=== PATIENT | male | born 1935 ===

== ENCOUNTER 2020-08-12 00:29 | Inpatient (IN) | payer MEDICARE ==
[~2020-08-12] VITALS: Ht 167.6 cm; Wt 92.5 kg
[2020-08-12] MEDS ORDERED: MORPHINE 4 MG/ML 1ML VIAL/SYRINGE (J2270) IV ONE (00:45)
[2020-08-12] MEDS ORDERED: NS 1,000 ML IV SCH (00:46)
--- NOTE | 2020-08-12 00:49 | HPEPDOC ---
[facility] Medical History & Physical Date of Admission Aug 12, 2020 Date of Service: Aug 12, 2020 Primary Care Physician: Colten Trammell Attending Physician: ALBIN LEI MD History and Physical TIME OF SERVICE: 105am CHIEF COMPLAINT: fall HISTORY OF PRESENT ILLNESS: This 85 yr old M was sent from [facility] for Orthopedic evaluation. He presented there after having a fall backwards while getting up to use the bathroom resulting in him hitting the back of his head. Thereafter he developed right leg and knee pain. He denied feeling dizzy, feeling short of breath, having chest pain, having palpitations or feeling like the ground was moving beneath him prior to the fall. He feels like his legs gave out and is unsure if he lost consciousness. 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 HOME MEDICATIONS: Please see below. PHYSICAL EXAMINATION: Vital Signs Date Time Temp Pulse Resp B/P (MAP) Pulse Ox O2 Delivery O2 Flow Rate FiO2 08/12/20 00:45 114 18 98 Nasal Cannula 2.0 08/12/20 00:46 126/74 (91) 08/12/20 00:49 99.1 GENERAL APPEARANCE: well nourished/ well developed/ NAD HEENT: EOMI/ hearing aide in left ear CARDIOVASCULAR: HR irregularly irregular /NMRG LUNGS: CTAB on the left, breath sounds diminished on the right ABDOMEN: obese/distended/soft & NT on palpation NEUROLOGICAL:CN 2-12 except for hearing grossly intact/ speech not dysarthric PSYCHIATRIC: A&O LABORATORY DATA: see HPI IMAGING: see HPI MICROBIOLOGY: COVID ASSESSMENT: is an 85 yr old w a hx of Afib CAD NIDDM IRENE CKD 4 HTN / HFpEF Gout Pleural effusion Obesity & Unsteady gait who had a fall resulting in a right proximal femur fx & was transferred to [facility] for Orthopedic evaluation. PLAN: 1. Fall resulting in a Proximal Right Femur Fx / Osteoporosis Prior to completing perioperative clearance for surgery this patient should receive a thoracentesis +/- an Echo to r/o pulm HTN Plan: admit to [facility] / Ortho consult / dilaudid for pain / pending BNP the day time team may consider ordering an Echo or contacting the PCP to obtain records / f/u trop, serum Ca, Vitamin D, phosphorus, magnesium, TSH / c/w PO Tums and Vitamin D / the pt can f/u with their PCP for DEXA Scan and risk stratification with the use of FRAX or other risk stratification score prior to selecting his medications for Osteoporosis 2. Normocytic Anemia Plan: type and screen/ f/u Iron studies / hold oral iron pending stool occult results 3. Pleural Effusion Based on the transfer records he has an effusion but there was no information on the etiology Plan: pending chest xray to determine the size of the effusion the day time team may consult IR or Dr. Hollins for diagnostic thoracentesis & consider contacting (PCP) to obtain records 4. Longstanding persistent A fib CHADSVASc is 6 but for unclear reasons he is not on AC Plan: metoprolol / low dose Lovenox / will ask the day time team to more info from his PCP 5. NIDDM Plan: diabetic diet / f/u accuchecks & A1C (target A1C is about 8.5% bc he is frail, elderly& lives in a NH) / hypoglycemia protocol / sliding scale insulin / hold Tradjenta 6. IRENE /Obesity Plan: nocturnal O2 7. CKD 4 Plan: f/u BMP 8. HTN / HFpEF Plan: Lasix, metoprolol 9. Chronic CAD/hx of IN Plan: ASA 10. Anxiety/Depression Plan: Escitalopram, trazodone 12. Gout Plan: allopurinol 13.GERD Plan: PPI 14. BPH Plan: tamsulosin DVT Px w Lovenox Dispo: back to [place] after more than 2 midnights stay / PFS consult has been placed Home Medications Scheduled Allopurinol (Allopurinol) 100 Mg Tablet, 100 MG PO DAILY Aspirin (Aspirin) 81 Mg Tab.chew, 81 MG PO DAILY Cholecalciferol (Vitamin D3) (Vitamin D3) 25 Mcg Capsule, 25 MCG PO DAILY Escitalopram Oxalate (Escitalopram Oxalate) 20 Mg Tablet, 20 MG PO DAILY Ferrous Sulfate (Ferrous Sulfate) 325 Mg Tablet, 325 MG PO DAILY Furosemide (Furosemide) 40 Mg Tablet, 40 MG PO BID L.acidoph/L.bulg/B.bif/S.therm (Bacid Caplet) 1 Each Tablet, 1 TAB PO TID Lansoprazole (Lansoprazole) 30 Mg Capsule.dr, 30 MG PO DAILY Linagliptin (Tradjenta) 5 Mg Tablet, 5 MG PO DAILY Metoprolol Succinate (Metoprolol Succinate) 25 Mg Tab.er.24h, 25 MG PO DAILY Tamsulosin HCl (Flomax) 0.4 Mg Capsule, 1 CAP PO QHS once daily 1/2 hour following the same meal each day Trazodone HCl (Trazodone HCl) 50 Mg Tablet, 50 MG PO QHS Scheduled PRN Acetaminophen (Acetaminophen) 500 Mg Tablet, 1,000 MG PO TID PRN for PAIN Bisacodyl (Bisacodyl) 10 Mg Supp.rect, 10 MG NM DAILY PRN for CONSTIPATION GIVE ON DAY 3 OF NO BM IF NO RELIEF FROM MOM Calcium Carbonate (Tums) 200 Mg Tab.chew, 500 MG PO TID PRN for HEART BURN Magnesium Hydroxide (Milk of Magnesia) 400 Mg/5 Ml Oral.susp, 30 ML PO ONCE PRN for CONSTIPATION GIVE ON DAY 3 IN AM IF NO BM Sodium Phosphate,[place]-Dibasic (Fleet Enema) 133 Ml Enema, 1 LEONIE NM ONCE PRN for CONSTIPATION GIVE ON DAY 4 OF NO BM IF NO RELIEF FROM SUPPOSITORY Allergies Coded Allergies: No Known Allergies (Unverified , 08/12/20) A-FIB/CHADSVASC A-FIB History Current/History of A-Fib/PAF?: Yes Current PO Anticoag Therapy: No Treatment Reason Anticoagulant not given: Recent/upcomin procedure ALBIN LEI MD Aug 12, 2020 00:49
[2020-08-12] MEDS ORDERED: HYDROMORPHONE HCL 0.5 MG/ 0.5 ML SYRINGE (J1170 PER 1) IV PRN ×2 (01:00)
[2020-08-12] MEDS ORDERED: ALLO100T PO (01:44)
[2020-08-12] MEDS ORDERED: LANS30CA PO (01:44)
[2020-08-12] MEDS ORDERED: ASPI1CHW3 PO (01:44)
[2020-08-12] MEDS ORDERED: ESCI20TA16 PO (01:44)
[2020-08-12] MEDS ORDERED: BACITAB PO (01:44)
[2020-08-12] MEDS ORDERED: FERR1TAB8 PO (01:44)
[2020-08-12] MEDS ORDERED: FLEEENE12 PR (01:44)
[2020-08-12] MEDS ORDERED: TRAD5TAB PO (01:44)
[2020-08-12] MEDS ORDERED: TRAZ-186 PO (01:44)
[2020-08-12] MEDS ORDERED: METO1TAB32 PO (01:44)
[2020-08-12] MEDS ORDERED: D 1010002 PO (01:44)
[2020-08-12] MEDS ORDERED: ACET-683 PO (01:44)
[2020-08-12] MEDS ORDERED: BISA10SU4 PR (01:44)
[2020-08-12] MEDS ORDERED: FLOM0.4C39 PO (01:44)
[2020-08-12] MEDS ORDERED: MILKSUS7 PO (01:44)
[2020-08-12] MEDS ORDERED: ONDANSETRON 4MG/2ML VIAL IV ONE (01:45)
[2020-08-12] MEDS ORDERED: TUMS500C PO (01:52)
[2020-08-12] MEDS ORDERED: FURO40TA2 PO (01:53)
[2020-08-12 03:45] VITALS: BP 154/91
[2020-08-12] MEDS ORDERED: DEXTROSE 50% 50 ML SYRINGE IV PRN (05:15)
[2020-08-12] MEDS ORDERED: GLUCAGON INJ 1MG VIAL SC PRN (05:15)
[2020-08-12] MEDS ORDERED: GLUCOSE 4GM CHEW TABLET PO PRN (05:15)
[2020-08-12 05:21] LABS: BASO % 0.2 % (0.0-1.0); EOS # 0.1 10^3/uL (0.0-0.5); EOS % 0.8 % (0.0-3.0); HEMATOCRIT 27.3 % (42.0-52.0); HEMOGLOBIN 7.9 g/dl (13.5-17.5); LYMPH # 1.3 10^3/uL (1.5-5.0); LYMPH % 11.9 % (24.0-44.0); MEAN CORPUSCULAR HEMOGLOBIN 25.4 pg (27.0-33.0); MEAN CORPUSCULAR HGB CONC 28.9 g/dl (32.0-36.5); MEAN CORPUSCULAR VOLUME 87.8 fl (80.0-96.0); MONO # 0.5 10^3/uL (0.0-0.8); MONO % 4.9 % (0.0-5.0); NEUTROPHILS % 81.5 % (36.0-66.0); PLATELET COUNT, AUTOMATED 172 10^3/uL (150-450); RED BLOOD COUNT 3.11 10^6/uL (4.30-6.10); WHITE BLOOD COUNT 11.1 10^3/uL (4.0-10.0)
[2020-08-12 05:32] LABS: INR 1.22; PROTHROMBIN TIME 15.7 SECONDS (12.5-14.3)
[2020-08-12 05:33] LABS: PARTIAL THROMBOPLASTIN TIME 31.7 SECONDS (24.2-38.5)
[2020-08-12 05:40] LABS: CALCIUM LEVEL 8.2 MG/DL (8.8-10.2); CREATININE FOR GFR 1.73 MG/DL (0.70-1.30); GLOMERULAR FILTRATION RATE 40.1 (>35); POTASSIUM SERUM 4.3 MEQ/L (3.5-5.1); TROPONIN I 0.02 NG/ML (< 0.10)
[2020-08-12] MEDS ORDERED: CALCIUM CARBONATE 500 MG CHEW U/D PO PRN (06:00)
--- NOTE | 2020-08-12 06:14 | REPVR ---
PROCEDURE INFORMATION: Exam: XR Chest, 1 View Exam date and time: 08/12/2020 6:06 AM Age: 85 years old Clinical indication: Other: Effusion; Additional info: F/u on effusion TECHNIQUE: Imaging protocol: XR of the chest Views: 1 view. COMPARISON: No relevant prior studies available. FINDINGS: Lungs: Unremarkable. No consolidation. Pleural space: There is a large right-sided pleural effusion with overlying atelectasis and or infiltrates. Heart/Mediastinum: Unremarkable. No cardiomegaly. Bones/joints: Unremarkable. IMPRESSION: Large right-sided pleural effusion with overlying atelectasis versus infiltrates. Minimal residual aerated lung field is noted. Other underlying etiologies cannot be excluded. Electronically signed by: Emerson Tapia On 08/12/2020 06:14:27 AM
--- NOTE | 2020-08-12 06:17 | REPVR ---
PROCEDURE INFORMATION: Exam: XR Abdomen, 1 View Exam date and time: 08/12/2020 6:06 AM Age: 85 years old Clinical indication: Bloating; Additional info: Distension TECHNIQUE: Imaging protocol: XR of the abdomen. Views: Frontal supine view of the abdomen. 1 View. COMPARISON: No relevant prior studies available. FINDINGS: Gastrointestinal tract: The stomach is significantly distended with gas. There is distention of the colon as well as multiple bowel loops with gas. Bones/joints: Unremarkable. IMPRESSION: Diffuse gaseous distention of the small and large bowel loops possibly due to ileus however distal large bowel obstruction cannot be excluded. If clinically indicated Correlation with CT of the abdomen and pelvis may be considered. Electronically signed by: Emerson Tapia On 08/12/2020 06:16:57 AM
[2020-08-12 06:18] LABS: D-DIMER QUANT > 4000 ng/ml (<500)
[2020-08-12 07:21] LABS: PERCENT SATURATION 9.1 % (19.7-50.0); THYROID STIMULATING HORMONE 0.391 uIU/ML (0.358-3.740)
[2020-08-12] MEDS: HumaLOG INSULIN (NovoLOG) PER UNIT SC SCH ×3 (07:30→18:00)
[2020-08-12] MEDS ORDERED: OMEPRAZOLE 20 MG CAP PO SCH (09:00)
[2020-08-12] MEDS ORDERED: METOPROLOL SUCC *XL* 25MG TAB (TopROL *XL*) PO SCH (09:00)
[2020-08-12] MEDS ORDERED: FUROSEMIDE 40 MG TAB PO SCH (09:00)
--- NOTE | 2020-08-12 09:26 | ECGEPIP ---
[facility] Test Date: 2020-08-12 Pat Name: ZAINA CHAND Department: Room: [place] [address] Gender: Male Blood Coordinator: JEAN-PIERRE : 1935 Requested By: ALBIN LEI Order Number: [id number] Reading MD: Ant Gonzalez Measurements Intervals [place]o Rate: 108 P: MO: 0 QRS: -15 QRSD: 90 T: 8 QT: 359 QTc: 481 Interpretive Statements Somatic artifact Suspected multifocal atrial tachycardia (visible P waves prior to each QRS complex V2 and V3) Poor precordial R wave progression with persistent S waves V5 and V6; body habitus versus pulmonary disease. Subtle nonspecific ST/T wave abnormalities No prior tracing for comparison. Clincal correlation advised Electronically Signed on 08-12-2020 9:26:24 EST by Ant Gonzalez
[2020-08-12 09:56] LABS: HEMOGLOBIN A1c 6.6 %
[2020-08-12 10:55] LABS: FOLATE 11.3 NG/ML (>5.4); TOTAL 25(OH) VITAMIN D 41.1 NG/ML (30.0-100.0)
[2020-08-12] MEDS: FUROSEMIDE 40MG/4ML VIAL (J1940) IV SCH ×2 (10:57→16:15)
[2020-08-12] MEDS: ENOXAPARIN 40MG/0.4ML SYRINGE (J1650 PER 10MG) SC SCH (10:57)
[2020-08-12 12:31] VITALS: BP 136/94
[2020-08-12] MEDS: allopurinoL 100 MG TAB PO SCH (12:47)
[2020-08-12] MEDS: VITAMIN D 1,000 INTERNATIONAL UNITS TABLET PO SCH (12:47)
[2020-08-12] MEDS: ESCITALOPRAM OXALATE 10 MG TAB (LEXAPRO) PO SCH (12:47)
[2020-08-12] MEDS: ASPIRIN 81 MG CHEW TABLET PO SCH (12:47)
--- NOTE | 2020-08-12 12:54 | REP ---
INDICATION: elevated ddimer, CKD r/o DVT. COMPARISON: None. TECHNIQUE: Multiple ultrasonographic images of the deep venous structures of the bilateral thigh were obtained from the common femoral vein to the popliteal vein along with Doppler interrogation and color flow Doppler images. FINDINGS: There is no abnormal echogenic material seen within any of the visualized deep venous structures that would suggest acute thrombosis. Coaptation is unremarkable throughout. Doppler interrogation shows an expected response to respiratory variability and augmentation. The color flow images show what appears to be a normal vascular pattern throughout. IMPRESSION: There is no ultrasonographic evidence of deep venous thrombosis involving any of the visualized deep venous structures of the bilateral thigh, as described above. The technologist has indicated in the worksheet that the examination is limited due to the condition of the patient. <Electronically signed by Edis De Oliveira > 08/12/20 0848
[2020-08-12] MEDS: PANTOPRAZOLE 40MG VIAL (C9113 PER 1) IV SCH (13:00)
--- NOTE | 2020-08-12 14:07 | REP ---
INDICATION: abd pain with distention COMPARISON: Portable view of the abdomen 12 August 2020.. TECHNIQUE: Helical scanning is acquired in 4 mm axial images were reformatted. Coronal and sagittal MPR images were generated and reviewed. FINDINGS: Preliminary tower director view of the abdomen demonstrates gaseous distention moderate in degree involving the stomach and the colon consistent with ileus. There is an impacted deformity in the right proximal femur on the tower director view. On axial CT images there is evidence of at least moderate right pleural effusion as the pleural space visualized at the right lung base is completely occupied by fluid and atelectasis. There is a very small sliver of fluid in the left pleural space. There are granulomatous calcifications scattered throughout the spleen which is not enlarged. There are 1 or 2 granulomatous calcifications in the liver. No focal liver lesion is seen. The lumen of the gallbladder is opaque consistent with mineralized content such is in sludge or vicarious excretion of contrast. Normal adrenal glands are seen. There is diffuse atrophy of the kidneys without hydronephrosis. A small cyst is seen in the cortex of the lower pole and there are scattered tiny calcifications suspected in the left kidney. No hydronephrosis is seen. No retroperitoneal mass or adenopathy is observed. A Bradley catheter is seen in the otherwise empty urinary bladder. Seminal vesicles are prostate are unremarkable. There is mild left colonic diverticulosis. Axial CT images confirm the presence of moderate gaseous distention of throughout the stomach and the entire colon extending to the rectosigmoid segment consistent with ileus. The small bowel is normal in caliber. No abdominal wall defect is seen. No free air or abnormal abdominal fluid collection is seen. There is a somewhat comminuted impacted inter trochanteric fracture of the right proximal femur in Veress. No pelvic fracture is appreciated. Vertebral body heights are preserved. There are degenerative spondylosis changes. No other fracture is appreciated. IMPRESSION: 1. Moderate to large right pleural effusion with atelectasis right lung. 2. Renal cortical atrophy. 3. Moderate diffuse ileus pattern in the bowel gas with moderate gaseous distention involving the stomach and almost all of the colon. 4. Comminuted and impacted inter trochanteric fracture right hip in varus. This appears to be acute. 5. Bradley catheter in place. <Electronically signed by Dakota Bradley > 08/12/20 [id number]
--- NOTE | 2020-08-12 14:19 | CR ---
CONSULTATION DATE: 08/12/2020 CHIEF COMPLAINT: Right hip pain and right knee pain. HISTORY OF PRESENT ILLNESS: This is an 85-year-old male patient sent on transfer from [facility] for evaluation of his right hip fracture. By report only, he was noted to have an intertrochanteric fracture of the right femur. Unfortunately there are no images to review today, is still pending updated x-rays of his knee and hip on the right side. He is currently in the process of workup for pleural effusion and also question of possibly small bowel obstruction so he is in workup currently for that. He is very confused today. He is in the PCU stretcher today, sitting up. When I asked him other than his name and date of those are the only questions he can answer. After that he tells me he cannot hear me and wants to know where his socks are. Other than that he is very confused. He denies currently any leg pain on the right side. Denies any calf pain on either side and tells me that he did not fall and he did not injure anything but by report obviously this is contrary of what was given by history so most of his history is obtained from the medical record. He does not remember if he lost consciousness or not. He has history of bilateral knee replacements done as well. MEDICAL HISTORY: Includes oxygen-dependent respiratory failure, coronary artery disease, status post IN, diabetes, sleep apnea, chronic kidney disease stage 4, hypertension, Afib, elevated lipids, anxiety, gout, erectile dysfunction, gastric reflux disease, obesity, hearing loss, benign prostatic hypertrophy, history of AAA. SURGICAL HISTORY: As discussed before, bilateral knee replacements, other than that not able to get further surgical history from the patient. REVIEW OF SYSTEMS: Per HPI. Again very difficult to complete a review of systems as he is very confused today. FAMILY HISTORY: Noncontributory. SOCIAL HISTORY: Apparently resides at the [facility]. ALLERGIES: NO KNOWN DRUG ALLERGIES. CURRENT MEDICATIONS: 1. Allopurinol 100 mg one tablet once per day. 2. Aspirin 81 mg one tablet once per day. 3. Vitamin D3 25 mcg one tablet once per day. 4. Escitalopram 20 mg one tablet once per day. 5. Iron Sulfate 25 mg one tablet once per day. 6. Lasix 40 mg one tablet twice daily. 7. Lansoprazole 30 mg one tablet once per day. 8. Linagliptin 5 mg one tablet once per day. 9. Metoprolol 25 mg one tablet once per day. 10. Flomax 0.5 mg one tablet at bedtime. 11. Trazodone 50 mg at bedtime. PHYSICAL EXAMINATION: GENERAL: Very confused male patient who appears to be older than his stated age, sitting up in the hospital bed at approximately 40 degrees of elevation of the back of the hospital bed. EXTREMITIES: His right leg is externally rotated and shortened. There is a large area of ecchymosis around the right knee. There is no effusion on exam today, no increased warmth around the hip or the knee. There is obvious deformity of the right hip. Otherwise, the skin is intact around the right hip. There is 2+ pitting edema in the right leg. Clonus negative. No pain with passive range of motion of the ankle or the great toe. Dorsalis pedis and posterior tibial pulses are palpable, equal and symmetrical on exam today. On the left lower extremity there is 1+ pitting edema, no clonus on exam on the left side. No pain with passive range of motion of the ankle or great toe on the left side. On the right side at the knee he lacks about 5 degrees of complete extension and can only flex him to about 60 degrees secondary to his pain in his hip. There is a well healed surgical scar consistent with his history of total knee arthroplasty on the right side. Examination of the left knee also reveals well healed surgical scar, range of motion is 0 to 80 degrees without irritability. There is no irritability with hip range of motion on the left side. Good range of motion of the shoulders, elbows and upper extremities without notable grimace on exam today. IMPRESSION: By report only is intertrochanteric fracture of the right femur as well as contusion to his right leg, contusion to his right knee status post total knee arthroplasty on right side. PLAN: He needs x-rays of his right hip and right knee, complete series of each. He will also need to complete his medical optimization for his other ongoing conditions. At some point he is going to be a candidate for open reduction and internal fixation of his right hip if he continues to improve with his medical optimization. He will currently be nonweightbearing on the right lower extremity. DVT prophylaxis and pain medications per the primary team. For now he essentially will be bed bound and nonweightbearing on the right lower extremity until we can make progress with his open reduction and internal fixation of his right hip fracture. Obviously this is complicated by his underlying medical conditions as well. Feel free to contact orthopedics if further conditions arise. We will continue to follow with him pending his medical optimization and also pending his updated x-rays of his knee and hip. Thank you for this pleasant consult. cc: SINTIA CARROLL MD
--- NOTE | 2020-08-12 15:56 | IPNPDOC ---
Text Note Date of Service The patient was seen on 08/12/20. NOTE Subjective: -Complaining of abdominal pain -Belching with N/V, refused NGT for ileus -surgery consulted, will monitor -Seen by ortho, ordered imaging -transferred to PCU Objective: GENERAL APPEARANCE: Obese, pleasantly NAD HEENT: EOMI/ hearing aide in left ear CARDIOVASCULAR: HR irregularly irregular /NMRG LUNGS: CTAB on the left, breath sounds diminished on the right ABDOMEN: obese/distended/soft/hypoactive, LLQ very tender NEUROLOGICAL:CN 2-12 except for hearing grossly intact/ speech not dysarthric PSYCHIATRIC: A&O LABORATORY DATA: reviewed IMAGING: CT A/P: Preliminary card services specialist view of the abdomen demonstrates gaseous distention moderate in degree involving the stomach and the colon consistent with ileus. There is an impacted deformity in the right proximal femur on the card services specialist view. On axial CT images there is evidence of at least moderate right pleural effusion as the pleural space visualized at the right lung base is completely occupied by fluid and atelectasis. There is a very small sliver of fluid in the left pleural space. There are granulomatous calcifications scattered throughout the spleen which is not enlarged. There are 1 or 2 granulomatous calcifications in the liver. No focal liver lesion is seen. The lumen of the gallbladder is opaque consistent with mineralized content such is in sludge or vicarious excretion of contrast. Normal adrenal glands are seen. There is diffuse atrophy of the kidneys without hydronephrosis. A small cyst is seen in the cortex of the lower pole and there are scattered tiny calcifications suspected in the left kidney. No hydronephrosis is seen. No retroperitoneal mass or adenopathy is observed. A Chen catheter is seen in the otherwise empty urinary bladder. Seminal vesicles are prostate are un remarkable. There is mild left colonic diverticulosis. Axial CT images confirm the presence of moderate gaseous distention of throughout the stomach and the entire colon extending to the rectosigmoid segment consistent with ileus. The small bowel is normal in caliber. No abdominal wall defect is seen. No free air or abnormal abdominal fluid collection is seen. There is a somewhat comminuted impacted inter trochanteric fracture of the right proximal femur in Veress. No pelvic fracture is appreciated. Vertebral body heights are preserved. There are degenerative spondylosis changes. No other fracture is appreciated. IMPRESSION: 1. Moderate to large right pleural effusion with atelectasis right lung. 2. Renal cortical atrophy. 3. Moderate diffuse ileus pattern in the bowel gas with moderate gaseous distention involving the stomach and almost all of the colon. 4. Comminuted and impacted inter trochanteric fracture right hip in varus. This appears to be acute. 5. Chen catheter in place. MICROBIOLOGY: COVID negative ASSESSMENT: is an 85 yr old w a hx of Afib CAD NIDDM IRENE CKD 4 HTN / HFpEF Gout Pleural effusion Obesity & Unsteady gait who had a fall resulting in a right proximal femur fx & was transferred to [facility] for Orthopedic evaluation. PLAN: Proximal Right Femur 2/2 mechanical fall -consulted ortho --> getting imaging -scheduled tylenol and PRN morphine for pain management -bed rest -needs medical optimization pre-surgical intervention with ongoing CHF, large pleural effusion, ileus and SHAJI CHF with shraddha volume overload and large R pleural effusion -elevated proBNP -EKG was non-ischemic and troponin negative -telemery -IV lasix 40 IV BID -strict I/Os -daily weights -chen for strict I/Os in bedbound patient with acute hip fracture -TTE Large R pleural effusion -Chronic in nature but likely worsened i/s/o CHF exacerbation -IR for thoracentesis with studies -supplemental oxygen for mild hypoxemia CKD4: I suspect he might have some congestive nephropathy given the shraddha volume overload -diuretics as above -no hydronephrosis on imaging -daily BMP Normocytic Anemia -Has active type and screen -f/u Iron studies Chronic persistent A fib CHADSVASc is 6 but for unclear reasons he is not on AC -metoprolol -ppx dosing Lovenox -not on AC, will discuss with PCP Ileus: -refused NGT -consulted surgery, monitoring for now, suspect it may be exacerbated by narcotic pain meds, discontinued them -NPO with frequent belching and emesis -CT A/P with ileus without obstruction NIDDM -NPO -f/u accuchecks Q6H -SSI Q6H -hypoglycemia protocol -hold Tradjenta IRENE /Obesity -nocturnal O2 HTN -metoprolol -lasix Chronic CAD/hx of AR -ASA Anxiety/Depression -Escitalopram, trazodone Gout -allopurinol GERD -PPI BPH -tamsulosin DVT Ppx w Lovenox Dispo: PCU VS,Fishbone, I+O VS, Fishbone, I+O Laboratory Tests 08/12/20 05:01 Vital Signs Date Time Temp Pulse Resp B/P (MAP) Pulse Ox O2 Delivery O2 Flow Rate FiO2 08/12/20 12:49 2.0 08/12/20 12:31 97.1 109 18 136/94 (108) 94 Nasal Cannula I&O- Last 24 Hours up to 6 AM 08/12/20 06:00 Intake Total 0 ml Output Total 175 ml Balance -175 ml JACOB LY MD Aug 12, 2020 15:56
[2020-08-12 16:00] VITALS: BP 111/55
--- NOTE | 2020-08-12 16:00 | REP ---
INDICATION: fx portable. COMPARISON: Comparison is made with today's CT imaging.. TECHNIQUE: Three views of the right hip are obtained. The exam was performed portably. FINDINGS: There is a slightly comminuted inter trochanteric fracture of the right hip in mild Veress and with slight impaction. There is diffuse osteopenia. No other fracture is seen. IMPRESSION: Slightly comminuted and impacted fracture through the inter trochanteric portion of the right hip with mild varus. <Electronically signed by Dakota Bradley > 08/12/20 [id number]
--- NOTE | 2020-08-12 16:01 | REP ---
INDICATION: fx portable patellar dislocation. COMPARISON: None. TECHNIQUE: Four views. No sunrise view could be obtained. FINDINGS: Four views of the right knee demonstrate right knee arthroplasty components in good position. There is diffuse osteopenia. Vascular calcification is noted.. No fracture or subluxation is seen. No opaque foreign body noted. IMPRESSION: Status post right knee arthroplasty. Diffuse osteoporosis. Vascular calcification. No acute bony abnormality. No sunrise view could be included. Patella is not optimally visualized.. <Electronically signed by Dakota Bradley > 08/12/20 [id number]
[2020-08-12] MEDS ORDERED: ACETAMINOPHEN *IV* 1,000 MG in IV 1 EA IV ONE (16:30)
[2020-08-12 20:00] VITALS: BP 152/86
[2020-08-12] MEDS: TAMSULOSIN 0.4 MG CAP PO SCH (20:00)
[2020-08-12] MEDS: traZODone 50 MG TAB PO SCH (20:00)
[2020-08-12] MEDS: ONDANSETRON 4MG/2ML VIAL IV PRN (20:10)
[2020-08-12] MEDS ORDERED: HumaLOG INSULIN (NovoLOG) PER UNIT SC SCH (21:00)
[2020-08-12] MEDS: diphenhydrAMINE CREAM 30GM TOP PRN (22:48)
[2020-08-13] VITALS (20 sets, daily range): BP systolic 113–155; BP diastolic 55–99
[2020-08-13] MEDS: HumaLOG INSULIN (NovoLOG) PER UNIT SC SCH ×4 (00:48→18:53)
[2020-08-13] MEDS ORDERED: HYDROMORPHONE HCL 0.5 MG/ 0.5 ML SYRINGE (J1170 PER 1) IV ONE (05:15)
[2020-08-13 06:17] LABS: BASO % 0.2 % (0.0-1.0); EOS % 0.2 % (0.0-3.0); HEMATOCRIT 26.1 % (42.0-52.0); HEMOGLOBIN 7.8 g/dl (13.5-17.5); LYMPH # 1.4 10^3/uL (1.5-5.0); LYMPH % 10.8 % (24.0-44.0); MEAN CORPUSCULAR HEMOGLOBIN 25.9 pg (27.0-33.0); MEAN CORPUSCULAR HGB CONC 29.9 g/dl (32.0-36.5); MEAN CORPUSCULAR VOLUME 86.7 fl (80.0-96.0); MONO # 0.7 10^3/uL (0.0-0.8); MONO % 5.3 % (0.0-5.0); NEUTROPHILS # 10.5 10^3/uL (1.5-8.5); NEUTROPHILS % 82.7 % (36.0-66.0); PLATELET COUNT, AUTOMATED 169 10^3/uL (150-450); RED BLOOD COUNT 3.01 10^6/uL (4.30-6.10); WHITE BLOOD COUNT 12.7 10^3/uL (4.0-10.0)
[2020-08-13 06:47] LABS: CALCIUM LEVEL 8.6 MG/DL (8.8-10.2); CREATININE FOR GFR 2.62 MG/DL (0.70-1.30); GLOMERULAR FILTRATION RATE 24.8 (>35); POTASSIUM SERUM 4.6 MEQ/L (3.5-5.1)
--- NOTE | 2020-08-13 07:16 | CR ---
CONSULTATION DATE: 08/12/2020 REQUESTING PHYSICIAN: Nirmala Gallego M.D. REASON FOR CONSULTATION: Acute kidney injury, pleural effusion and possible congestive heart failure. HISTORY OF PRESENT ILLNESS: Mr. Hughes is an 85-year-old gentleman who is quite noncooperative and significantly hard of hearing, very difficult to communicate with him and he keeps repeating that "I don't trust anybody." He was transferred to [facility] from outside hospital due to right hip and knee injury. He was noticed to have a hip fracture and is probably going to need surgery. He was also found to have large, right-sided pleural effusion and worsening kidney function. A nephrology consultation was requested and the patient is seen today. The patient himself was unable to provide any information. His chart is reviewed. PAST MEDICAL HISTORY: The patient was transferred from [facility] and has a long history of multiple chronic medical problems. He is currently a shelter resident there. 1. The patient has chronic O2 dependent respiratory failure. 2. Coronary artery disease with prior ID. 3. Noninsulin dependent diabetes. 4. Obstructive sleep apnea. 5. CKD stage 4. 6. Hypertension. 7. Diastolic congestive heart failure. 8. Longstanding atrial fibrillation. 9. Dyslipidemia. 10. Gout. 11. Gastroesophageal reflux disease. 12. Anxiety. 13. Degenerative disc disease. 14. History of chronic pleural effusion. 15. Hearing loss. 16. History of abdominal aortic aneurysm. 17. BPH. PAST SURGICAL HISTORY: He has prior history of bilateral knee replacement. PERSONAL AND SOCIAL HISTORY: The patient is a shelter resident from [place]. FAMILY HISTORY: Noncontributory for this admission. ALLERGIES: The patient has no known drug allergies. HOME MEDICATIONS: 1. Allopurinol 100 mg daily. 2. Aspirin 81 mg daily. 3. Vitamin D once a day. 4. Ferrous Sulfate 325 mg daily. 5. Furosemide 40 mg b.i.d. 6. Escitalopram 20 mg daily. 7. Tradjenta 5 mg daily. 8. Lansoprazole 30 mg daily. 9. Metoprolol 25 mg daily. 10. Tamsulosin 0.4 mg daily. 11. Trazodone 50 mg at bedtime. Here in the hospital, his medications are essentially the same other than Zofran 4 mg every six hours p.r.n. nausea and Lovenox 40 mg daily. He is also receiving Protonix 40 mg daily and calcium carbonate 500 mg t.i.d. p.r.n. for heartburn. REVIEW OF SYSTEMS: The patient is very uncooperative and significantly hard of hearing. He is unable to provide any information. Apparently he fell and sustained a right hip fracture and right knee injury due to which he was transferred to [facility] for orthopedic care from [facility]. Here, he had a CT scan of abdomen and pelvis which showed distended small and large bowel loops and suspected bowel obstruction. NG tube placement was attempted by nursing staff and was unsuccessful. The patient was also quite uncooperative for it. Otherwise, review of systems is unobtainable. PHYSICAL EXAMINATION: Elderly gentleman quite uncooperative for physical exam. His temperature is 97.1 degrees Fahrenheit, heart is 109 per minute and respiratory rate 18 per minute. Blood pressure 136/94 mmHg and oxygen saturation 94%. His oral mucosa is somewhat dry. Neck: Supple and JVD difficult to be assessed. Heart sounds are tachycardic and irregular. Lungs are diminished breath sounds on the right side. Abdomen is quite protuberant and nontender. Bowel sounds are hypoactive. Extremities have right knee with a large swelling on the lateral side and erythema. Lower extremity edema is present. Neurologically the patient is quite hard of hearing, otherwise he is moving all his limbs. LABORATORY DATA: WBC count is 11.1, hemoglobin 7.9 and hematocrit 27.3, platelets 172. Sodium 137, potassium 4.3, CO2 32, BUN 28 and creatinine 1.73. Glucose 118 and A1c 6.6. Calcium level 8.2. CT scan of abdomen and pelvis showed a right large pleural effusion and distended small and large bowel loops. No hydronephrosis. Right hip has intertrochanteric fracture. PROBLEMS: 1. Right pleural effusion. The patient seems to have chronic pleural effusion. I am not sure if this is related to congestive heart failure. I will recommend to get his pleural effusion drained for diagnostic and therapeutic purposes. He does have history of diastolic congestive heart failure. However, he also seems to have bowel obstruction. I would be hesitant to aggressively diurese him. He does not have any hydronephrosis. We will need to monitor closely and adjust our plan depending upon his condition. 2. Abdominal distention and possible bowel obstruction. NG tube was attempted by nursing staff but was unsuccessful. If he is going to have NPO and requires NG tube suctioning, then probably we should keep him on gentle IV hydration and not try to diurese him. 3. Anemia. The patient has significant anemia with possible blood loss due to recent hip fracture and knee injury. CBC should be repeated and he is likely to require transfusion. 4. Hypertension. At present, his blood pressure seems to be reasonable. I would avoid VERO inhibitor and angiotensin receptor blockers. He is on low dose beta peg which is appropriate for his atrial fibrillation. The patient was quite difficult to be assessed due to his inability to cooperate and significant hearing loss. We will continue to follow him along with you.
[2020-08-13] MEDS ORDERED: METOPROLOL TART 25 MG TABLET PO SCH (09:00)
--- NOTE | 2020-08-13 09:55 | IPNPDOC ---
Text Note Date of Service The patient was seen on 08/13/20. NOTE Subjective: -Confused -Belching improved, abdominal girth and distention improved, NGT now in place -surgery, ortho, nephro following Objective: GENERAL APPEARANCE: Obese, pleasantly NAD HEENT: EOMI/ hearing aide in left ear CARDIOVASCULAR: HR irregularly irregular /NMRG LUNGS: CTAB on the left, breath sounds diminished right ABDOMEN: obese/improved distended/soft/hypoactive, tenderness improved, NGT in place NEUROLOGICAL:CN 2-12 except for hearing grossly intact/ speech not dysarthric PSYCHIATRIC: A&O LABORATORY DATA: reviewed IMAGING: CT A/P: Preliminary dye range tender view of the abdomen demonstrates gaseous distention moderate in degree involving the stomach and the colon consistent with ileus. There is an impacted deformity in the right proximal femur on the dye range tender view. On axial CT images there is evidence of at least moderate right pleural effusion as the pleural space visualized at the right lung base is completely occupied by fluid and atelectasis. There is a very small sliver of fluid in the left pleural space. There are granulomatous calcifications scattered throughout the spleen which is not enlarged. There are 1 or 2 granulomatous calcifications in the liver. No focal liver lesion is seen. The lumen of the gallbladder is opaque consistent with mineralized content such is in sludge or vicarious excretion of contrast. Normal adrenal glands are seen. There is diffuse atrophy of the kidneys without hydronephrosis. A small cyst is seen in the cortex of the lower pole and there are scattered tiny calcifications suspected in the left kidney. No hydronephrosis is seen. No retroperitoneal mass or adenopathy is observed. A Chen catheter is seen in the otherwise empty urinary bladder. Seminal vesicles are prostate are unremarkable. There is mild left colonic diverticulosis. Axial CT images confirm the presence of moderate gaseous distention of throughout the stomach and the entire colon extending to the rectosigmoid segment consistent with ileus. The small bowel is normal in caliber. No abdominal wall defect is seen. No free air or abnormal abdominal fluid collection is seen. There is a somewhat comminuted impacted inter trochanteric fracture of the right proximal femur in [place]. No pelvic fracture is appreciated. Vertebral body heights are preserved. There are degenerative spondylosis changes. No other fracture is appreciated. IMPRESSION: 1. Moderate to large right pleural effusion with atelectasis right lung. 2. Renal cortical atrophy. 3. Moderate diffuse ileus pattern in the bowel gas with moderate gaseous d istention involving the stomach and almost all of the colon. 4. Comminuted and impacted inter trochanteric fracture right hip in varus. This appears to be acute. 5. Chen catheter in place. MICROBIOLOGY: COVID negative ASSESSMENT: is an 85 yr old w a hx of Afib CAD NIDDM IRENE CKD 4 HTN / HFpEF Gout Pleural effusion Obesity & Unsteady gait who had a fall resulting in a right proximal femur fx & was transferred to [facility] for Orthopedic evaluation. PLAN: Proximal Right Femur 2/2 mechanical fall -consulted ortho --> getting imaging -scheduled tylenol and PRN morphine for pain management -bed rest -needs medical optimization pre-surgical intervention with ongoing CHF, large pleural effusion, ileus and SHAJI CHF with shraddha volume overload and large R pleural effusion -elevated proBNP -EKG was non-ischemic and troponin negative -telemery -DC IV lasix 40 IV BID -strict I/Os -daily weights -chen for strict I/Os in bedbound patient with acute hip fracture -TTE pending Large R pleural effusion -Chronic in nature but likely worsened i/s/o CHF exacerbation -IR for thoracentesis with studies -supplemental oxygen for mild hypoxemia CKD4: I suspect he might have some congestive nephropathy given the shraddha volume overload -nephrology onboard --> dc diuretics, give blood, tap R pleural effusion -no hydronephrosis on imaging -daily BMP Normocytic Anemia -Has active type and screen -f/u Iron studies -give 2u pRBCs Chronic persistent A fib CHADSVASc is 6 but for unclear reasons he is not on AC -metoprolol -ppx dosing Lovenox -not on AC, will discuss with PCP Ileus: -NGT in place -f/u AXR -consulted surgery, monitoring for now, suspect it may be exacerbated by narcotic pain meds, discontinued them -NPO with frequent belching and emesis -CT A/P with ileus without obstruction -IV fluids NIDDM -NPO -f/u accuchecks Q6H -SSI Q6H -hypoglycemia protocol -hold Tradjenta IRENE /Obesity -nocturnal O2 HTN -metoprolol -lasix Chronic CAD/hx of IN -ASA Anxiety/Depression -Escitalopram, trazodone Gout -allopurinol GERD -PPI BPH -tamsulosin DVT Ppx w Lovenox Dispo: PCU VS,Fishbone, I+O VS, Fishbone, I+O Laboratory Tests 08/13/20 05:58 Vital Signs Date Time Temp Pulse Resp B/P (MAP) Pulse Ox O2 Delivery O2 Flow Rate FiO2 08/13/20 08:00 97.3 100 18 117/63 (81) 99 Nasal Cannula 2.0 I&O- Last 24 Hours up to 6 AM 08/13/20 06:00 Intake Total 360 ml Output Total 250 ml Balance 110 ml JACOB LY MD Aug 13, 2020 09:55
[2020-08-13] MEDS: allopurinoL 100 MG TAB PO SCH (10:22)
[2020-08-13] MEDS: ESCITALOPRAM OXALATE 10 MG TAB (LEXAPRO) PO SCH (10:23)
[2020-08-13] MEDS: ASPIRIN 81 MG CHEW TABLET PO SCH (10:23)
[2020-08-13] MEDS: VITAMIN D 1,000 INTERNATIONAL UNITS TABLET PO SCH (10:23)
[2020-08-13] MEDS: PANTOPRAZOLE 40MG VIAL (C9113 PER 1) IV SCH (10:26)
[2020-08-13] MEDS: METOPROLOL SUCC *XL* 25MG TAB (TopROL *XL*) PO SCH (10:26)
[2020-08-13] MEDS: NS 1,000 ML IV SCH (10:27)
--- NOTE | 2020-08-13 10:35 | REP ---
INDICATION: Ileus COMPARISON: None. TECHNIQUE: Supine view of the abdomen and pelvis. FINDINGS: Examination is limited by portable technique. Distended air-filled colon suggests underlying ileus and correlation is recommended. Differential diagnosis may include mechanical large bowel obstruction. No obvious free air. No obvious foreign body. IMPRESSION: Limited examination demonstrating moderately distended large bowel suggesting ileus and less likely mechanical large bowel obstruction. <Electronically signed by Conor Wallace > 08/13/20 [id number]
[2020-08-13] MEDS: traMADol 50 MG TAB NG PRN (10:50)
[2020-08-13] MEDS ORDERED: SODIUM BICARBONATE 8.4% INJ 50MEQ 50 ML VIAL As Ordered ONE (11:33)
--- NOTE | 2020-08-13 12:49 | REP ---
INDICATION: S/P THORACENTESIS. Right thoracentesis. COMPARISON: Comparison chest x-ray 12 August 2020. TECHNIQUE: Two views.. FINDINGS: Upright AP and lateral views demonstrate a moderate to large right-sided hydropneumothorax. The amount of pleural air has decreased significantly post right thoracentesis. The aerated right lung has increased in volume but there is a considerable amount of pleural air visible post thoracentesis. Overall pleural space volume is similar to pre thoracentesis levels. There is no mediastinal shift. Heart is enlarged. Left lung is clear. There are air bronchograms in the collapsed right lower lobe. IMPRESSION: Post right thoracentesis images demonstrate a large hydropneumothorax on the right. Some improvement in aeration in the right upper lobe however much of the removed pleural fluid is now replaced by pleural air. Follow-up is recommended.. <Electronically signed by Dakota Bradley > 08/13/20 [id number]
[2020-08-13 13:54] LABS: APPEARANCE, BODY FLUID CLOUDY (CLEAR); PLEURAL FL COLOR RED (COLORLESS); SOURCE, BODY FLUID PLEURAL
--- NOTE | 2020-08-13 14:07 | REP ---
INDICATION: L right pleural effusion The patient has a history of right pleural effusion COMPARISON: None. TECHNIQUE: The procedure was performed by Vani Marie [facility], under the direct supervision of Dr. Bradley The risks and benefits of the procedure were explained to the patient and an informed consent was obtained both verbally and written. Directly prior to the start of the procedure a formal time-out was completed in the procedure room. Pleural fluid in right lung zone was localized using ultrasound guidance. The skin was prepped and draped in a sterile fashion. Three ML of buffered lidocaine was used as a local anesthetic. Using ultrasound guidance an 8-Maori multi side-hole catheter was inserted using trocar technique. FINDINGS: One thousand five hundred mL of red tinged colored fluid was withdrawn and sent to the laboratory for further analysis. The patient tolerated the procedure well and there were no immediate complications. After the appropriate amount of monitored convalescence, the patient was discharged from the department. IMPRESSION: Ultrasound-guided right thoracentesis with removal of 1500 mL a fluid. <Electronically signed by Vani Marie > 08/13/20 1329 <Electronically signed by Dakota Bradley > 08/13/20 1402
[2020-08-13 14:10] LABS: LDH, BODY FLUID 167 U/L (NOT ESTABLISHED); SOURCE, BODY FLUID GLUCOSE PLEURAL; SOURCE, BODY FLUID LDH PLEURAL; SOURCE, BODY FLUID TOT PROTEIN PLEURAL; TOTAL PROTEIN, BODY FLUID 3.8 G/DL (NOT ESTABLISHED)
[2020-08-13] MEDS ORDERED: flumazeniL 0.5 MG/5 ML VIAL As Ordered ONE (17:25)
[2020-08-13] MEDS ORDERED: LIDOCAINE 1% MDV 20ML VIAL As Ordered ONE (17:26)
[2020-08-13] MEDS ORDERED: MIDAZOLAM INJ 2MG/2ML VIAL (J2250 PER 1MG) As Ordered ONE (17:26)
--- NOTE | 2020-08-13 18:40 | REP ---
INDICATION: chest tube. COMPARISON: Earlier today a two view exam TECHNIQUE: Portable FINDINGS: The right-sided pneumothorax is essentially unchanged, however, there is now, however, right-sided thoracotomy tube implies The cardiac silhouette is enlarged and magnified by technique status quo. The osseous structures are unchanged. IMPRESSION: Right-sided thoracotomy tube otherwise no change <Electronically signed by Edis De Oliveira > 08/13/20 [id number]
--- NOTE | 2020-08-13 18:57 | RO ---
OPERATIVE NOTE DATE OF OPERATION: 08/13/2020 PREOPERATIVE DIAGNOSIS: Hydropneumothorax, probably entrapped lung. POSTOPERATIVE DIAGNOSIS: Hydropneumothorax, probably entrapped lung. PROCEDURE: Insertion of a right lateral chest tube. SURGEON: Dr. Hollins DESCRIPTION OF PROCEDURE: Under satisfactory moderate sedation, patient was prepped and draped in the usual sterile fashion. The skin and subcutaneous tissue and pleura was infiltrated into approximately the 6th intercostal space. Incision was made, a tunnel was created into the chest, and a #24 chest tube was placed without difficulty. This was secured to the chest wall with a #2 Tevdek suture and connected to the Pleur-evac. Chest x-ray was taken after the procedure, which showed the lung still to be entrapped and down, even though chest tube was in excellent position. Patient tolerated the procedure well.
[2020-08-13] MEDS ORDERED: MIDAZOLAM INJ 2MG/2ML VIAL (J2250 PER 1MG) IV ONE (19:00)
[2020-08-13] MEDS ORDERED: LIDOCAINE 1% MDV 20ML VIAL SC ONE (19:00)
--- NOTE | 2020-08-13 19:34 | CR ---
CONSULTATION DATE: 08/13/2020 REASON FOR CONSULTATION: Patient seen at the request of the hospitalist service for now a hydropneumothorax after drainage of the pleural effusion by interventional radiology. HISTORY OF PRESENT ILLNESS: Patient is an 85-year-old white male who is quite uncooperative. When I asked him what happened and what brought him here, he says that he does not know, and why am I asking him such "stupid questions," so I do not have much of a history on him other than that what was in the medical record. I know that he fell at some point in time in the recent past at home and suffered a comminuted and impacted trochanteric fracture. He was first seen at [facility] and then sent here for orthopedic evaluation. Upon admission here, he was noted to be in atrial fibrillation, which is now understood to be longstanding with a right pleural effusion, renal failure, and nontender. Over the course of the last 24 hours, he has developed an ileus and bloody nasogastric (NG) tube drainage. Other than aspirin, I do not see that he has been on chronic anticoagulation at home. According to his son, he was seen by pulmonology at [facility] about a month ago, and he was found to have a pleural effusion. They did not drain it, as they thought it was going to be gelatin. It is notable in the hospital that he has been 95%-94% saturated on 2 liters nasal cannula. He was taken to x-ray today to drain the pleural effusion and was left with a hydropneumothorax with a pancaked lung against the chest wall. There was some concern that his represented a true pneumothorax. I certainly had my doubts, but the only way to find out was to place a tube and place suction on the tube to see if we could get the lung back up and perhaps even do a tPA pleurolysis of the lung to see if we could break up any entrapped fibrotic tissue. MEDICAL HISTORY: According to the medical record and particularly Dr. Andrews's note shows him to have: 1. Coronary artery disease with a prior myocardial infarction 2. Kkc-kcczplq-jastovyxc diabetes mellitus. 3. Obstructive sleep apnea. 4. Chronic kidney disease, stage IV. 5. Hypertension. 6. Diastolic congestive heart failure. 7. Longstanding atrial fibrillation. 8. Dyslipidemia. 9. Gout. 10. Gastroesophageal reflux disease (GERD). 11. Anxiety. 12. Degenerative disc disease. 13. The chronic pleural effusion, as noted above. 14. Hearing loss. 15. History of abdominal aortic aneurysm. 16. Benign prostatic hypertrophy. 17. Most likely dementia. SURGICAL HISTORY: Bilateral knee replacement. SOCIAL HISTORY: He is a snf resident in [place]. FAMILY HISTORY: Not pertinent to the acute situation. ALLERGIES: None. HOME MEDICATIONS: - allopurinol 100 mg daily - aspirin 81 mg daily - vitamin D daily - ferrous sulfate 325 mg daily - Lasix 40 mg twice a day - escitalopram 20 mg daily - Tradjenta 5 mg daily - lansoprazole 30 mg daily - metoprolol 25 mg daily - tamsulosin 0.4 mg daily - trazodone 50 mg every night TRAVEL HISTORY: Unobtainable. EXPOSURE HISTORY: Unobtainable. WORK HISTORY: Unobtainable. REVIEW OF SYSTEMS: Unobtainable. PHYSICAL EXAMINATION: A well-developed, obese white male in psychological distress with confusion. Vital Signs: Temperature 98.8, pulse 104, in atrial fibrillation, respiratory rate of 18 without the use of accessory muscles. He is 95% saturated on 2 liters nasal cannula, and his blood pressure is 132/70. Eyes: Pupils equal, reactive to light. Extraocular movements intact. Sclerae anicteric. Head: Normocephalic. Nose without deformity. Has an nasogastric (NG) tube in place. Mouth shows his mucous membranes to be pink and moist. Lips and commissures without lesions. Neck is supple. There is no jugular venous distention. No subcutaneous emphysema. Trachea is midline. Lungs show markedly decreased breath sounds on the right side with rales and rhonchi on the left side. He will not allow me to sit him up to listen to his back. Abdomen is soft, slightly tender but not rigid. Bowel sounds are amphoric. There is no hepatomegaly that I can detect. Extremities show 1+ pretibial edema. No calf tenderness. No differential swelling of the upper extremities. Skin is warm, dry, and perfused without cyanosis or mottling, including that of the nailbeds and knees. Neurologic shows motor, gross sensation intact. II-XII are grossly intact. Psychiatric shows him to confused and somewhat belligerent. DIAGNOSTIC STUDIES: His white count is 12.7 with a hemoglobin and hematocrit of 7.8 and 26.1, essentially unchanged from 7.9 and 27.3 on admission. Platelet count is 169 and stable. Differential shows 82% neutrophils, 10% lymphocytes, and 5% monocytes. There are no immature forms or toxic granulations. His electrolytes are normal with a BUN and creatinine, however, of 36 and 2.62, up from 28 and 1.73 yesterday. Glucose is 192 with a calcium of 8.6. Fluid from his chest after thoracentesis showed a white count of 1366, 95% of which are mononuclears and lymphocytes. Only 5% are neutrophils. Glucose is 151 with an LDH of 167. There is no serum LDH to compare it to, and I will therefore order one. There is also no total protein to compare his fluid total protein of 3.8. His chest x-ray showed a large hydropneumothorax with the lung looking as if it is pancaked along the mediastinal surface. IMPRESSION: 1. Probable chronic pleural effusion, drained by thoracentesis, now with a hydropneumothorax. 2. Hydropneumothorax. 3. Probable entrapped lung. 4. Chronic renal failure. 5. Hypertension. 6. Dementia. 7. Probably bowel obstruction. 8. Trochanteric fracture of his right hip. 9. Atrial fibrillation. 10. Obstructive sleep apnea. 11. History of coronary artery disease, status post a myocardial infarction. PLAN AND DISCUSSION: So far as his lung is concerned, I will place a chest tube and try and place the tube on suction to reinflate the lung. I have my doubts that that is going to work and I suspect his pleural effusion has been quite chronic for a long period of time. We will obtain a CT scan after the chest tube tomorrow and entertain a tPA pleurolysis in the hopes of trying to expand the lung.
[2020-08-13 20:37] LABS: TOTAL PROTEIN 6.9 GM/DL (6.4-8.2)
[2020-08-13] MEDS: TAMSULOSIN 0.4 MG CAP PO SCH (20:58)
[2020-08-13] MEDS: traZODone 50 MG TAB PO SCH (21:00)
--- NOTE | 2020-08-13 23:04 | IPN ---
PROGRESS NOTE DATE: 08/13/2020 HISTORY: The patient was seen yesterday for evaluation of some abdominal distension and discomfort. This was felt to represent acute colonic pseudoobstruction associated with an acute right hip fracture with other ongoing severe medical issues. He is seen today in follow up for this. Vital signs showed that the patient has been afebrile over the past 24 hours. His pulse has been in the low 100s. Blood pressure has remained generally stable. Intake and output showed that yesterday he had recorded 360 ml in with 425 out. He has had a minimal amount of urine so far today. He had an NG tube finally inserted yesterday early evening, which has been draining some fluid. He had a thoracentesis performed in radiology today that returned an unknown amount of fluid which was sent for testing. PHYSICAL EXAMINATION: The patient is lying in the hospital bed. He has mitts on his hands to prevent him removing the NG tube. He appears disoriented for the most part and expresses some anger with epithets and was using some epithets towards his physicians. The NG tube is in place and seems to be at an appropriate depth with a small amount of lightly bloody fluid in the container. The abdomen remains somewhat distended, though perhaps slightly less so than yesterday. He does have some tinkly bowel sounds still present in the upper abdomen. The abdomen is soft. He does report some tenderness on palpation across the upper mid abdomen. LABORATORY STUDIES: This morning showed a white count of 13, hemoglobin 8, hematocrit 26 and platelet count of 169,000. Differential count showed 83% neutrophils, 11% lymphocytes and 5% monocytes. Chemistry profile today showed a sodium of 137, potassium of 4.6, chloride 98, Co2 of 31. BUN of 36, creatinine 2.6, which is a significant rise from yesterday and a glucose of 192. His thoracentesis fluid showed a white count of 1366 with red count of 68. His neutrophils were 95% mononuclear. He had a glucose of 151 and a protein of 3.8. LDH was 167. Follow up x-ray showed a large pneumothorax now on the right with very limited reexpansion of his right lung. He did not appear to have a mediastinal shift. Abdominal x-ray earlier in the day showed an air filled colon, which was mildly dilated all the way from the cecum to at least the distal transverse colon or mid descending colon. This does not appear more dilated than yesterday IMPRESSION: The patient still has evidence for acute colonic pseudoobstruction. He has also shown significant worsening in his renal function and his urine output is very limited with at least oliguria if not developing anuria. His thoracentesis revealed a large amount of fluid per study, but his lung has not re-expanded and he now has a pneumothorax rather than a pleural effusion. RECOMMENDATIONS: At this point, I will continue to follow his abdomen. He is clearly critically ill with worsening renal failure, as well as all of his other underlying issues. I will leave it to the hospitalist to determine how to best address his pleural effusion/pneumothorax. NICK
[2020-08-14] VITALS: BP 136/90
[2020-08-14 00:53] LABS: HEMATOCRIT 30.2 % (42.0-52.0)
[2020-08-14 04:00] VITALS: BP 122/81
[2020-08-14] MEDS: HumaLOG INSULIN (NovoLOG) PER UNIT SC SCH ×5 (06:00→23:26)
[2020-08-14] MEDS: NS 1,000 ML IV SCH ×2 (06:38→17:29)
[2020-08-14 06:49] LABS: HEMATOCRIT 30.5 % (42.0-52.0); HEMOGLOBIN 9.2 g/dl (13.5-17.5); MEAN CORPUSCULAR HEMOGLOBIN 26.4 pg (27.0-33.0); MEAN CORPUSCULAR HGB CONC 30.2 g/dl (32.0-36.5); MEAN CORPUSCULAR VOLUME 87.6 fl (80.0-96.0); PLATELET COUNT, AUTOMATED 151 10^3/uL (150-450); RED BLOOD COUNT 3.48 10^6/uL (4.30-6.10); WHITE BLOOD COUNT 12.1 10^3/uL (4.0-10.0)
[2020-08-14 07:08] LABS: CALCIUM LEVEL 8.5 MG/DL (8.8-10.2); CREATININE FOR GFR 3.51 MG/DL (0.70-1.30); GLOMERULAR FILTRATION RATE 17.7 (>35); POTASSIUM SERUM 4.5 MEQ/L (3.5-5.1)
[2020-08-14 07:57] VITALS: BP 145/79
--- NOTE | 2020-08-14 08:00 | REP ---
INDICATION: pneumothorax COMPARISON: 08/13/2020 TECHNIQUE: Portable AP view of the chest FINDINGS: Large right pneumothorax again noted with minimal improvement. Left hemithorax is relatively stable/clear although mild passive atelectasis cannot be excluded. Visualized mediastinum and cardiac silhouette stable. Nasogastric tube extends below the left hemidiaphragm. Skeletal structures are intact. IMPRESSION: Large right pneumothorax minimally decreased. <Electronically signed by Conor Wallace > 08/14/20 [id number]
[2020-08-14] MEDS: METOPROLOL SUCC *XL* 25MG TAB (TopROL *XL*) PO SCH (08:41)
[2020-08-14] MEDS ORDERED: METOPROLOL SUCC *XL* 25MG TAB (TopROL *XL*) PO SCH (09:00)
--- NOTE | 2020-08-14 10:01 | CR ---
"CONSULTATION DATE: 08/12/2020 |REASON FOR CONSULTATION: Abdominal pain and distention. HISTORY OF PRESENT ILLNESS: The patient is an 85-year-old man, who was admitted early in the morning of the 12 of August as a transfer from [facility]. The patient had suffered a fall and was seen at [facility], where he was diagnosed with a right hip fracture. He was also noted to have a very large right pleural effusion. He was transferred to [facility] for orthopedic care and was admitted by the hospitalist for management. Today, the patient was noted to have some abdominal distention and abdominal pain with some tenderness, and I was asked to evaluate the patient regarding this. He did have a CT scan of the abdomen and pelvis obtained today to evaluate this problem. ALLERGIES: Patient has no reported drug allergies. MEDICATIONS PRIOR TO ADMISSION: Include: 1. Tylenol 1,000 mg p.o. three times daily as needed for pain. 2. Allopurinol 100 mg p.o. daily. 3. Aspirin 81 mg p.o. daily. 4. Bisacodyl 10 mg suppository rectally daily as needed for constipation. 5. Calcium carbonate 500 mg p.o. three times daily as needed for heartburn. 6. Vitamin D3 25 mcg p.o. daily. 7. Escitalopram 20 mg p.o. daily. 8. Ferrous sulfate 325 mg p.o. daily. 9. Lasix 40 mg p.o. twice daily. 10.Bacid caplets one tablet p.o. t.i.d. 11.Lansoprazole 30 mg p.o. daily. 12.Linagliptan 5 mg tablets p.o. daily. 13.Magnesium Hydroxide 30 mL p.o. as needed for constipation. 14.Metoprolol Succinate 25 mg p.o. daily. 15.Fleet enemas once p.r.n. for constipation every fourth day. 16.Flomax 0.4 mg p.o. q.h.s. 17.Trazodone 50 mg p.o. q.h.s. PAST MEDICAL HISTORY: Significant for hypertension and history of coronary artery disease with prior myocardial infarction. He reportedly has sleep apnea with oxygen dependent respiratory failure. He has underlying atrial fibrillation and dyslipidemia. He has a history of gout and reflux. There is a history of obesity. He has benign prostatic hyperplasia. He has known diabetes mellitus. PAST SURGICAL HISTORY: Patient has a history of knee replacements. Patient is not able to offer additional surgical history. FAMILY HISTORY: Noncontributory. REVIEW OF SYSTEMS: Patient is not complaining of any chest pain or palpitations or shortness of breath currently. He does complain of some abdominal discomfort. He denies nausea or vomiting at this time. He does complain of pain in the right hip area. PHYSICAL EXAMINATION: GENERAL: Reveals an older gentleman lying quietly in the hospital bed. During the course of our interview and exam, he does ask several times if I am going to be fixing his hip and if not, why not. SKIN: Warm and dry. HEENT: Sclerae are anicteric. Neck without mass. HEART: Exam shows a rhythm in the 80's to 90's, which is generally regular with occasional irregular beats. LUNGS: Show diminished breath sounds bilaterally, but more so on the right. ABDOMEN: Obese and quite protuberant. There are no evident abdominal scars. There is no sign of hernia. Auscultation reveals some tinkly bowel sounds in the upper abdomen. He has tympany to percussion across the upper abdomen. There is some mild tenderness to percussion in the mid epigastrium. The abdomen is generally soft, but full throughout. There is no rebound tenderness. EXTREMITIES: His right lower extremity is externally rotated and shortened. His upper extremities appear intact. LABORATORY STUDIES: As of this morning show white count 11, hemoglobin 8, hematocrit 27 and platelet count 172,000. Differential count shows 82% neutrophils and 12% lymphocytes with 5% monocytes. His coags show PT 16, INR 1.2 and APTT 32. Chemistry profile showed normal electrolytes with BUN 28, creatinine 1.7 and glucose 218. BNP 10,644 with troponin 0.02. Hemoglobin A1C 6.6 with estimated mean plasma glucose 143. Liver function tests show phosphorus 4, magnesium 2.0, iron 19, TIBC 209 and transferrin percent sat of 9.1. IMAGING STUDIES: Included chest x-ray, abdominal x-ray, knee x-ray, hip x-ray at the time of admission. He had a CT scan of the abdomen and pelvis late this morning. The chest x-ray showed a large right pleural effusion with atelectasis. Minimal aerated lung was noted in the right lung hanley. A right knee x-ray demonstrated right knee arthroplasty components in good position with diffuse osteopenia. Right hip x-ray showed a slightly comminuted and impacted fracture through the intertrochanteric portion of the right hip. The abdominal x-ray showed diffuse gaseous distention of the small and large bowel loops, consistent with ileus versus large bowel obstruction. The CT scan of the abdomen and pelvis confirmed a very large right pleural effusion. There was diffuse atrophy of the kidneys bilaterally. A Bradley catheter was noted in place. There was air throughout the colon as well as a moderate amount of gas distention of the stomach. There is no evidence of hernia. IMPRESSION: 1. Acute colonic pseudo-obstruction 2. Large right pleural effusion of unclear etiology; malignant versus benign. 3. Acute right hip fracture. 4. Diabetes mellitus. 5. Chronic kidney disease. 6. Oxygen dependent respiratory failure and obstructive sleep apnea. 7. Coronary artery disease. 8. Persistent atrial fibrillation. 9. Gout. 10.Obesity. 11.Benign prostatic hyperplasia. 12.Osteoarthritis and osteoporosis. RECOMMENDATIONS: At this point, there is certainly no need for any urgent surgical intervention. The patient should remain n.p.o. with maintenance I.V. fluid. We should try to avoid narcotic analgesics as much as possible to prevent worsening of his pseudo-obstruction. A nasogastric tube would be appropriate, though the nurse indicated that several attempts were made and the patient did not tolerate attempts at passage. If possible, the NG tube should be inserted as this would likely help to decompress him. At this point, he will be observed regularly to see if there is evidence of worsening abdominal distention or signs of over distention of the colon. I will order a repeat KUB for the morning of the . Certainly his pleural effusion will need to be addressed to determine if this represents a benign or malignant condition. I will leave the remainder of patient's management fully in the hands of the hospitalist. NICK"
[2020-08-14] MEDS: PANTOPRAZOLE 40MG VIAL (C9113 PER 1) IV SCH (10:22)
[2020-08-14] MEDS: VITAMIN D 1,000 INTERNATIONAL UNITS TABLET PO SCH (10:23)
[2020-08-14] MEDS: ASPIRIN 81 MG CHEW TABLET PO SCH (10:23)
[2020-08-14] MEDS: allopurinoL 100 MG TAB PO SCH (10:23)
[2020-08-14] MEDS: ENOXAPARIN 40MG/0.4ML SYRINGE (J1650 PER 10MG) SC SCH (10:23)
[2020-08-14] MEDS: METOPROLOL TART 12.5 MG PER 1/2 TAB PO SCH ×2 (10:23→20:24)
[2020-08-14] MEDS: ESCITALOPRAM OXALATE 10 MG TAB (LEXAPRO) PO SCH (10:23)
[2020-08-14] MEDS: traMADol 50 MG TAB NG PRN ×3 (10:24→23:13)
--- NOTE | 2020-08-14 10:32 | REP ---
INDICATION: entrapped lung. COMPARISON: Comparison is made with chest x-ray from this is morning and the previous day's. No comparison chest CT.. TECHNIQUE: Helical scanning is acquired. 3 mm axial images are generated. Coronal and sagittal MPR and coronal MIP images are generated. FINDINGS: Digital preliminary acoustical carpenter radiograph demonstrates a fairly large right-sided pneumothorax despite the presence of a right basilar chest tube. Left lung is essentially clear. Right lung is partially aerated. On axial CT images the Laura large right-sided hydropneumothorax is confirmed. Chest tube is seen in the right base. There is a small quantity of fluid and a large amount of pleural air on the right with extensive atelectatic change in the right lower lobe right middle lobe and right upper lobe. There is some aeration in the right upper lobe. No endobronchial disease is appreciated. There are 1 or 2 fibrous pleural strands at the apex posteriorly. It is difficult to exclude a peripheral mass in the right mid lung field versus atelectasis and consolidation. There are granulomatous calcifications in the left hilus. The left lung is well inflated. There is a very small left pleural effusion. There is no mediastinal mass or adenopathy. No pericardial effusion is seen. There is aortic valvular calcification and cardiomegaly. Granulomatous calcifications are scattered in the liver and the spleen. Vicarious excretion of intravenous contrast into the gallbladder is seen incidentally. Renal cortical atrophy is observed. No bony lesion is seen. IMPRESSION: Findings consistent with a entrapped lung with incomplete re-expansion following thoracostomy drainage. Large persistent right-sided hydropneumothorax with partial reoccur inflation of the right upper lobe. Extensive atelectasis on the right. Small left pleural effusion. Granulomatous changes. Cardiomegaly and aortic valvular calcification noted. <Electronically signed by Dakota Bradley > 08/14/20 [id number]
--- NOTE | 2020-08-14 10:36 | ECHO ---
DATE OF PROCEDURE: 08/12/2020 Age: 85 Gender: Male Height: 168 cm Weight: 112 kg REFERRING PHYSICIAN: Nirmala Gallego MD INDICATION: Dyspnea. MEASUREMENTS: IVS 1.2 cm LV 5.0 cm LVPW 1.1 cm LA 4.0 cm Aorta 3.5 cm RV 3.9 cm IVC 1.6 cm FINDINGS: This study is of rather difficult technical quality. There is underlying either atrial fibrillation with rapid ventricular response or sinus rhythm with frequent PACs and ventricular rate in 110's. Left ventricle is of normal size. Mild left ventricular hypertrophy is noted. There is septal wall motion abnormality and overall global hypokinesis, I estimate LVEF around 35% to 40%. Right ventricle is normal size and systolic function. Both atria are severely enlarged. Aortic valve is relatively poorly seen, but it appears heavily sclerotic with restriction of mobility. By 2D imaging, I would assume severe aortic stenosis. There are also degenerative abnormalities of the mitral valve with mitral annular calcifications. Mobility of leaflets is preserved. Tricuspid valve appears grossly normal based on limited views. The pulmonic valve also appears normal. Trace pericardial effusion is noted. Inferior vena cava is of normal size. Aortic root is normal. Aortic arch and abdominal aorta were not well seen. Doppler interrogation of the aortic valve reveals mild insufficiency and likely severe stenosis. Mean gradient was 42 and peak gradient 68 mmHg. Calculated aortic valve area was 0.7 cm2. There is mild mitral insufficiency and moderate tricuspid insufficiency. Calculated pulmonary artery pressure is at minimum in the 70s corresponding to moderately severe pulmonary hypertension. Trace pulmonic insufficiency is seen. Evaluation of diastolic function is inconclusive due to irregular underlying rhythm. CONCLUSIONS: 1. This study was of limited technical quality, underlying atrial fibrillation or sinus tachycardia with frequent ectopy. Rate in 110's. 2. Normal LV size with mild LVH, septal wall motion abnormality, and global hypokinesis with estimated LVEF of approximately 35% to 40%. 3. Heavily calcified aortic valve with severe aortic stenosis (mean gradient 42 mmHg, calculated NANETTE 0.7 cm2) and mild insufficiency. 4. Mild mitral insufficiency. 5. Moderate tricuspid insufficiency. 6. Suggestive of normal central venous pressure, but at least moderately severe pulmonary hypertension (estimated pulmonary artery pressure at least in the mid 70s). COMMENTS: If the patient is believed to be a candidate, then he should have cardiac catheterization with intent for AVR or TAVR. MTDD
[2020-08-14] MEDS ORDERED: ALTEPLASE 2MG/2ML VIAL XX ONE (11:00)
[2020-08-14 11:18] LABS: ABG BASE EXCESS 2.2 (-2.0-2.0); ABG HCO3 27.1 MEQ/L (22.0-26.0); ABG O2 SATURATION 98.2 % (95.0-99.0); ABG PARTIAL PRESSURE CO2 43.6 mmHg (35.0-45.0); ABG PARTIAL PRESSURE O2 110.5 mmHg (75.0-100.0); ABG STANDARD HCO3 26.4 MEQ/L (22.0-26.0); ABG TOTAL CO2 28.4 MEQ/L (23.0-31.0); ABG pH (ARTERIAL) 7.411 UNITS (7.350-7.450)
[2020-08-14] MEDS ORDERED: MIRALAX *UNIT DOSE* 17GM PACKET PO PRN (11:30)
[2020-08-14 12:00] VITALS: BP 143/90
--- NOTE | 2020-08-14 12:44 | IPN ---
PROGRESS NOTE DATE: 08/14/2020 Mr. Hughes is confused as ever but a lot less belligerent today. His hip really hurts him with any motion whatsoever, including sitting him up to listen to his lungs. His vital signs show a maximum temperature of 97.4 with a heart rate that ranges between 101-120 in atrial fibrillation with a respiratory rate of 18-20 without the use of accessory muscles, who is 95%-100% saturated on 2 liters nasal cannula and whose blood pressure is ranging between 145/79 to 122/81. His intake and output for the past 24 hours has been recorded as 1950 in and 1925 out, for near equality. He put out 10,075 mL from the chest tube and 675 mL from his nasogastric (NG) tube. His urine output has been 175. He has put out 140 mL in the last 24 hours from the chest tube. PHYSICAL EXAMINATION: He has decreased breath sounds on the right side. His left side shows rales and rhonchi. It is difficult to examine him, as it is difficult for him to sit up. Cardiac exam is without murmurs, clicks, gallops, or rubs. I cannot feel his point of maximal impulse (PMI). S1 and S2 are normal. Abdomen is distended and tympanitic, but bowel sounds are positive. He is rather amphoric. I cannot test costovertebral angle (CVA) tenderness. I do not feel hepatomegaly, although he hurts in the right upper quadrant. Extremities show 1+ pretibial edema, more on the left than the right. There is no calf tenderness that I can elicit, and there is no differential swelling of the upper extremities. Skin is warm, dry, and perfused without cyanosis or mottling, including that of the nailbeds and knees. Neck is supple. There is no jugular venous distention. No subcutaneous emphysema. Trachea is midline. Mouth shows the mucous membranes to be pink and moist. Lips and commissures without lesions. There is no thrush. Eyes show his pupils to be equal and reactive. Extraocular motion intact. Sclerae anicteric. Neurologic shows II-XII intact. Normal gross motor, gross sensation intact. Gait is not tested. Psychiatric shows him to be awake and alert but confused. DIAGNOSTIC STUDIES: His white count is 12.1 with a hemoglobin and hematocrit of 9.1 and 30.5, unchanged from yesterday, with a platelet count of 151. Chemistries today showed normal electrolytes with a BUN and creatinine of 49 and 3.51, respectively, up from 26 and 2.6 yesterday. Glucose is 154 with a calcium of 8.5. Pleural fluid reported from August 12 showed 1366 white cells, 95% of which were mononuclear lymphocytes and only 5% were neutrophils. Glucose was 151. Total protein was 3.8 with an LDH of 167. His LDH in the serum is 126, making this look transudative and monocytic, consistent with a chronic effusion and/or heart failure. His chest x-ray today shows the lungs better expanded than yesterday but still not at all adjacent to the chest wall. I did obtain a CT scan on him today to look at the status of the lung. It looks as though his lung is encased in a rind. There are air bronchograms in the lower lobe with adjacent compression. I do not think this represents a mass. I do not see endobronchial lesions obstructing the bronchi. His left lung shows increased diameter of pulmonary vessels. There is a scant pleural effusion on the left. Adrenals have a normal configuration. I do not see ascites. IMPRESSION: 1. Chronic pleural effusion. 2. Entrapped lung. 3. Hydropneumothorax. 4. Chronic renal failure. 5. Hypertension. 6. Dementia. 7. Ileus versus bowel obstruction. 8. Trochanteric fracture of his right hip. 9. Atrial fibrillation. 10. Obstructive sleep apnea. 11. History of coronary artery disease, status post myocardial infarction. PLAN AND DISCUSSION: I will do a tPA pleurolysis on him today. His hip needs to be repaired, and there is nothing from a pulmonary point of view that should delay this. I will keep the chest tube in for the procedure, but I suspect that his lung is permanently entrapped, and it never going to be coming up, and the fluid will just reaccumulate. I will try the tPA pleurolysis in the hope of expanding the lung, but I doubt that is going to work, as it has been so chronic. I will defer to cardiology with regard to his cardiac status for operation. His lung is exhibiting autoregulation with now most of the blood flow going to the left because of the compression on the right side. He is able to oxygenate fairly well on 2 liters nasal cannula. His blood gas shows that he can ventilate with a pH of 7.41 and a pCO2 of 43 and pO2 of 110 on the 2 liters nasal cannula, again, all pointing to the fact that he can withstand operation from a pulmonary point of view.
[2020-08-14] MEDS: DOCUSATE SODIUM 100MG CAPSULE PO SCH ×2 (13:10→20:22)
[2020-08-14] MEDS: ONDANSETRON 4MG/2ML VIAL IV PRN (14:02)
[2020-08-14 16:00] VITALS: BP 147/78
--- NOTE | 2020-08-14 19:40 | IPNPDOC ---
Subjective Date Seen The patient was seen on 08/14/20. Subjective Chief Complaint/HPI Mr. Hughes is an 85 year old male who was sent here from [facility] for orthopedic evaluation. This morning, he pulled out the NGT. There was no output last night and he had bowel sounds. Otherwise, spoke with Dr. Hollins today. He will try directed TPA. Otherwise this morning, patient denies any chest pain or dyspnea. Objective Physical Examination General Exam: Positive: Cooperative Eye Exam: Negative: Sclera icteric ENT Exam: Positive: Atraumatic Neck Exam: Positive: Supple Chest Exam: Positive: Other (No breath sounds in right lung, left lung clear) Heart Exam: Positive: Tachycardic, Irregular Rhythm Abdomen Exam: Positive: Tenderness, Other (distended) Assessment /Plan Assessment Mr. Hughes is an 85 year old male who was sent here from [facility] for proximal right femur fracture 2/2 mechanical fall. He needs to be medically optimized prior to surgery. He was found to have a large right pleural effusion. Dr. Hollins has drained the effusion, and patient has an entrapped lung. Dr. Hollins to try TPA in an attempt to expand some of the lung. Otherwise, he has been doing well at 2L of NC. General surgery has been following for the ileus. Patient had NGT and drained gastric fluid until last evening. This morning, he pull out the NGT. He denies nausea. Will see how he does without NGT. Will start bowel regimen for ileus. Otherwise, he has SHAJI. Nephrology following and recommendations appreciated. Patient is being given IVF. Plan/VTE VTE Prophylaxis Ordered?: Yes Plan 1. Right proximal femur fracture -Sent from [facility] for orthopedic evaluation -Orthopedic surgery following -Will have to be medically optimized prior to surgery 2. Large right pleural effusion -Dr. Hollins following, recommendations appreciated -There is an entrapped lung, Dr. Hollins to try TPA to expand some of the lung -Otherwise patient stable on 2L of NC 3. Ileus -General surgery following, recommendations appreciated -Patient had a trial of NGT -Will start bowel regimen. No BM since 08/12/2020 4. SHAJI on CKD -Nephrology following, recommendations appreciated -Patient on IVF -Trend BMP 5. Atrial fibrillation -Continue on Lopressor -Not on full dose anticoagulation at this time 6. Anemia -Transfused 2u pRBC -Responded appropriately -Continue to monitor 7. Gout -No active disease -Continue allopurinol 8. NIDDM -Continue with POC glucose checks 9. DVT ppx -Lovenox VS, I&O, 24H, Fishbone Vital Signs/I&O Vital Signs Date Time Temp Pulse Resp B/P (MAP) Pulse Ox O2 Delivery O2 Flow Rate FiO2 08/14/20 16:00 2.0 08/14/20 16:00 96.3 89 18 147/78 (101) 100 Nasal Cannula I&O- Last 24 Hours up to 6 AM 08/14/20 05:59 Intake Total 1950 ml Output Total 2000 ml Balance -50 ml Laboratory Data 24H LABS Laboratory Tests 2 08/13/20 19:58: Lactate Dehydrogenase 400H, Total Protein 6.9 08/13/20 23:47: Bedside Glucose (Misc Panel) 121H 08/14/20 06:10: Bedside Glucose (Misc Panel) 127H 08/14/20 06:33: Nucleated Red Blood Cells % (auto) 0.2H, Anion Gap 6L, Glomerular Filtration Rate 17.7L, Calcium Level 8.5L 08/14/20 11:05: Blood Gas Bicarbonate Standard 26.4H, Arterial Blood pH 7.411, Arterial Blood Partial Pressure CO2 43.6, Arterial Blood Partial Pressure O2 110.5H, Arterial Blood Total CO2 28.4, Arterial Blood HCO3 27.1H, Arterial Blood Base Excess 2.2H, Arterial Blood Oxygen Saturation 98.2 08/14/20 11:26: Bedside Glucose (Misc Panel) 152H 08/14/20 16:40: Bedside Glucose (Misc Panel) 109 CBC/BMP Laboratory Tests 08/14/20 00:31 08/14/20 06:33 Microbiology Microbiology 08/13/20 Urine Culture - Final, Complete 08/12/20 Blood Culture - Preliminary, Resulted No Growth after 48 hours. All Specime... 08/12/20 Blood Culture - Preliminary, Resulted No Growth after 48 hours. All Specime... 08/12/20 Body Fluid Culture, Received Pending BRANDIE LINTON DO Aug 14, 2020 19:40
[2020-08-14 20:00] VITALS: BP 161/90
[2020-08-14] MEDS: SENNA 8.6 MG TAB (SENOKOT) PO SCH (20:22)
[2020-08-14] MEDS: traZODone 50 MG TAB PO SCH (20:22)
[2020-08-14] MEDS: TAMSULOSIN 0.4 MG CAP PO SCH (20:24)
[2020-08-15] VITALS: BP 112/62
[2020-08-15 04:00] VITALS: BP 137/90
[2020-08-15 05:49] LABS: HEMATOCRIT 29.7 % (42.0-52.0); HEMOGLOBIN 8.5 g/dl (13.5-17.5); MEAN CORPUSCULAR HEMOGLOBIN 25.8 pg (27.0-33.0); MEAN CORPUSCULAR HGB CONC 28.6 g/dl (32.0-36.5); PLATELET COUNT, AUTOMATED 153 10^3/uL (150-450); WHITE BLOOD COUNT 10.5 10^3/uL (4.0-10.0)
[2020-08-15] MEDS: HumaLOG INSULIN (NovoLOG) PER UNIT SC SCH ×3 (06:00→18:00)
[2020-08-15 06:13] LABS: CALCIUM LEVEL 8.4 MG/DL (8.8-10.2); CREATININE FOR GFR 3.68 MG/DL (0.70-1.30); GLOMERULAR FILTRATION RATE 16.8 (>35)
[2020-08-15 06:14] LABS: POTASSIUM SERUM 5.6 MEQ/L (3.5-5.1)
[2020-08-15] MEDS: NS 1,000 ML IV SCH ×2 (06:20→15:52)
[2020-08-15 08:00] VITALS: BP 154/77
--- NOTE | 2020-08-15 08:09 | REP ---
INDICATION: pneumothorax COMPARISON: 08/14/2020 TECHNIQUE: Portable AP view of the chest FINDINGS: Right chest tube in stable position. Marked large right pneumothorax is unchanged. Stable cardiomegaly. Left hemithorax is relatively clear. IMPRESSION: 1. Continued large right pneumothorax. 2. No new acute process appreciated. <Electronically signed by Conor Wallace > 08/15/20 0805
--- NOTE | 2020-08-15 08:10 | REP ---
INDICATION: colonic pseudoobstruction COMPARISON: 08/13/2020 TECHNIQUE: Supine view of the abdomen and pelvis. FINDINGS: Marked dilated air-filled loops of small and large bowel again noted and similar to prior examination. Differential diagnosis includes ileus, Darlington's syndrome, and possible mechanical large bowel obstruction. IMPRESSION: No significant change from prior examination with continued marked dilated air-filled loops of bowel. <Electronically signed by Conor Wallace > 08/15/20 0830
[2020-08-15] MEDS: VITAMIN D 1,000 INTERNATIONAL UNITS TABLET PO SCH (10:01)
[2020-08-15] MEDS: SENNA 8.6 MG TAB (SENOKOT) PO SCH (10:01)
[2020-08-15] MEDS: ESCITALOPRAM OXALATE 10 MG TAB (LEXAPRO) PO SCH (10:02)
[2020-08-15] MEDS: PANTOPRAZOLE 40MG VIAL (C9113 PER 1) IV SCH (10:02)
[2020-08-15] MEDS: ASPIRIN 81 MG CHEW TABLET PO SCH (10:02)
[2020-08-15] MEDS: allopurinoL 100 MG TAB PO SCH (10:02)
[2020-08-15] MEDS: DOCUSATE SODIUM 100MG CAPSULE PO SCH ×2 (10:02→21:25)
[2020-08-15] MEDS: ENOXAPARIN 40MG/0.4ML SYRINGE (J1650 PER 10MG) SC SCH (10:02)
[2020-08-15] MEDS: METOPROLOL TART 12.5 MG PER 1/2 TAB PO SCH ×2 (10:03→21:28)
--- NOTE | 2020-08-15 10:08 | IPN ---
NEPHROLOGY PROGRESS NOTE DATE: 08/13/20 SUBJECTIVE: Mr. Hughes is seen on the morning of August 13 on his bedside. He is quite upset and agitated. He has mittens on both hands and a nasogastric tube in place. Nursing staff report that his urine output was minimal and I.V. fluid has already been stopped. I have discussed with the hospitalist this morning and advised for I.V. hydration and stopping of diuretics. Patient himself is a poor historian and not able to provide any further information. He does have his hearing aid in place today and was able to answer simple questions though he is not very cooperative. PHYSICAL EXAMINATION: Temperature 97.9 degrees Fahrenheit, heart rate about 110 per minute and respiratory rate 22 per minute. Blood pressure 128/69 mmHg and oxygen saturation 97% on 2 liters oxygen. Intake and output records show total intake only 360 and output 425 during the last 24 hours. Urine output is still minimal. Head: Atraumatic. Neck: Supple and JVD not abnormally elevated. Heart: Sounds are tachycardic and irregular. Lungs: Diminished breath sounds particularly on the right side. Abdomen: Distended and bowel sounds are not audible. Extremities: No cyanosis or clubbing. Neurologically: He is moving all his limbs. He is agitated and restless. LABORATORY DATA: Labs from this morning showed WBC count 12.7, hemoglobin 7.8, hematocrit 26 and platelets 169. Sodium 137, potassium 4.6, CO2 31, BUN 36, creatinine 2.62, glucose 192 and calcium 8.6. PROBLEMS/PLAN: 1. Oliguric acute renal failure: Most likely this is a result of intravascular volume depletion. Diuretics have been stopped and I.V. fluid has been started. Patient has a nasogastric tube being suctioned and he is n.p.o. At this point we will continue with I.V. fluid hydration. 2. Pleural effusion and pneumothorax: I feel that patient has chronic pleural effusion and is likely to require chest tube placement. I do not feel that diuresis is going to help with his pleural effusion. 3. Abdominal distention: Patient is being treated with nasogastric tube suctioning for possible bowel obstruction. He is being followed by surgery. His electrolytes are stable so far. He will need I.V. fluid hydration as he is n.p.o. and has nasogastric tube suctioning. 4. Anemia: Patient is going to require transfusion and I have discussed with the Hospitalist Service. 5. Right hip fracture and knee injury: At this point patient is not medically stable for any surgical intervention.
--- NOTE | 2020-08-15 10:46 | IPN ---
NEPHROLOGY PROGRESS NOTE DATE: 08/14/20 SUBJECTIVE: Mr. Hughes seen this morning on his bedside. He is somewhat less agitated, but still restless and upset. He still has mittens on both hands. He had a chest tube placed due to pneumothorax and pleural effusion. Right sided hydropneumothorax was noticed on his CT scan. His urine output has improved and he remains on I.V. fluid. Today NG-tube has been removed. His abdominal distention is better and patient reports that he did not have a bowel movement, but is able to pass flatus. MEDICATIONS: His medications are reviewed. He continues on I.V. fluids and diuretics have been stopped. His metoprolol has been cut down to 12.5 mg twice a day and no other changes are noticed over the last 24 hours. PHYSICAL EXAMINATION: Temperature 96.1 degrees Fahrenheit, heart rate 74 per minute and respiratory rate 20 per minute. Blood pressure 143/90 mmHg and oxygen saturation 99% on 2 liters oxygen. Intake and output record for the last 24 hours are almost even with total intake 1950 and output 1925 mL. Head: Atraumatic. Neck: Supple and JVD not abnormally elevated. Heart: Sounds are tachycardic. Lungs: Diminished breath sounds. Abdomen: Soft and less distended today. Bowel sounds are present. Extremities: Without any cyanosis or clubbing. He has mittens on both hands. Neurologically: He is moving all his limbs. He is restless and somewhat agitated. LABORATORY DATA: Today's labs show WBC count 12.1, hemoglobin up to 9.2, hematocrit 30.5 and platelets 151. Sodium 138, potassium 4.5, chloride 102, CO2 30, BUN 49, creatinine 3.51, calcium now at 8.5. PROBLEMS/PLAN: 1. Oliguric acute kidney failure: His urine output is gradually improving. I will recommend to continue with I.V. fluid about 100 mL per hour. As his bowel obstruction or ileus has improved he is likely to start responding to I.V. fluids and kidney function is likely to improve. He does not seem to have any intrinsic kidney problem, but this is most likely all hemodynamic and volume related. He does not have metabolic acidosis or hyperkalemia at this point. There is no emergent indication for dialysis. 2. Hydropneumothorax: Patient already has a chest tube in place and it is likely to help with his hydropneumothorax. Dr. Hollins is following him. 3. Anemia: His anemia has improved following transfusion. 4. Abdominal distention and possible bowel obstruction: Patient seems to be doing better and NG-tube has been removed today.
[2020-08-15 10:53] LABS: CALCIUM LEVEL 8.3 MG/DL (8.8-10.2); CREATININE FOR GFR 3.65 MG/DL (0.70-1.30); GLOMERULAR FILTRATION RATE 16.9 (>35)
[2020-08-15 12:00] VITALS: BP 133/94
--- NOTE | 2020-08-15 13:03 | IPN ---
PROGRESS NOTE DATE: 08/15/2020 Mr. Hughes has had a relatively uneventful night. He is still fairly confused and is most concerned about getting a drink of water, but he is nothing by mouth secondary to his ileus. His vital signs show a maximum temperature of 97.4 with a heart rate that ranges between 72-95 in atrial fibrillation with a respiratory rate of 16-18 without the use of accessory muscles, who is 98%-96% saturated on 2 liters nasal cannula and whose blood pressure is ranging between 154/77 to 112/62. His intake and output for the past 24 hours has been recorded as 1650 in and 1710 out. He has put out 435 mL from the chest tube after his tPA pleurolysis. He has put out another 560 mL in the last 12 hours. His weight today is 88.8 kg compared to 87 kg yesterday. PHYSICAL EXAMINATION: I again cannot sit him up secondary to his painful hip fracture. He has decreased breath sounds on the right side. I do not feel any subcutaneous emphysema. His left side shows rales and rhonchi. Cardiac exam shows a irregular rate and rhythm without murmurs, clicks, gallops, or rubs. I cannot feel his point of maximal impulse (PMI). S1 and S2 are normal. Abdomen is still tympanitic and slightly tender in the right upper quadrant. Bowel sounds are amphoric but positive. They are less so today than they were yesterday. Extremities show no pretibial edema, no calf tenderness, no differential swelling of the upper extremities. Skin is warm, dry, and perfused without cyanosis or mottling, including that of the nailbeds and knees. Neck is supple. There is no jugular venous distention. No subcutaneous emphysema. Trachea is midline. Mouth shows the mucous membranes to be pink and moist. Lips and commissures without lesions. No thrush. Eyes show his pupils to be equal and reactive. Extraocular motion intact. Sclerae anicteric. Neurologic shows gross motor, gross sensation intact along with gross II-XII intact. Gait, of course, is not tested. Psychiatric shows him to be confused. DIAGNOSTIC STUDIES: His white count today is 10.5 with a hemoglobin and hematocrit of 8.5 and 29.7, slightly down from yesterday's of 9.2 and 30.5. Platelet count is 153 and stable. Chemistries show his normal electrolytes with a BUN and creatinine of 62 and 3.65, essentially stable. Glucose is 147 with a calcium 8.3. His chest x-ray still shows the lung not expanded to the chest wall but better than yesterday. There is a considerable amount of entrapment with a considerable amount of air. I do not see an air leak from the chest tube, however. There is no lateral x-ray, as this was taken portable, and he could not stand or sit up. IMPRESSION: 1. Chronic pleural effusion. 2. Entrapped right lung. 3. Hydropneumothorax. 4. Chronic renal failure. 5. Hypertension. 6. Dementia. 7. Ileus versus bowel obstruction. 8. Trochanteric fracture of his right hip. 9. Atrial fibrillation. 10. Obstructive sleep apnea. 11. History of coronary artery disease, status post myocardial infarction. PLAN AND DISCUSSION: I am gratified that we could clear out more of his effusion with the tPA pleurolysis. It did nothing to expand his lung. I think the lung is permanently entrapped, and I could remove the chest tube and the fluid would just reaccummulate. I would rather not do that until he goes for his orthopedic surgery; therefore, I will keep the chest tube in until that point. Surgery is following his ileus.
--- NOTE | 2020-08-15 13:21 | RO ---
OPERATIVE NOTE DATE OF OPERATION: 08/14/2020 PREOPERATIVE DIAGNOSIS: Loculated pleural effusion, entrapped lung. POSTOPERATIVE DIAGNOSIS: Loculated pleural effusion, entrapped lung. PROCEDURE: TPA pleurolysis. SURGEON: Dr. Bradley Hollins DESCRIPTION OF PROCEDURE: Patient's chest tube was clamped and disconnected from the Pleur-evac. There was 6 mg of tPA then instilled into the chest via the chest tube in 100 mL of normal saline. Patient could not be shaken side to side because of his trochanteric hip fracture. Chest tube will be unclamped in 4 hours. Patient tolerated the procedure well.
[2020-08-15 16:00] VITALS: BP 117/57
[2020-08-15 19:44] VITALS: BP 119/78
--- NOTE | 2020-08-15 20:01 | IPN ---
NEPHROLOGY PROGRESS NOTE DATE: 08/15/2020 SUBJECTIVE: Mr. Hughes is seen this morning at his bedside. He remains n.p.o. but was able to take his medications. He is complaining of being thirsty and wants a drink. He denies any fevers or chills. He still has mittens on his hands due to agitation and pulling on things. Urine output has been low and IV fluid was increased to 100 ML per hour today. He still has no bowel movement and abdominal distention persists. He did pull out his NG tube yesterday. PHYSICAL EXAMINATION: VITAL SIGNS: Temperature 97.8 degrees Fahrenheit, heart rate 78 per minute and respiratory rate 20 per minute, blood pressure 133/94 mm of mercury and oxygen saturation 97% on 2 liters oxygen. INTAKE AND OUTPUT: Records from yesterday show a total intake of 1,650 and output 1,710. Most of it was chest tube drainage and only 275 mL of urine. HEENT: His head is atraumatic. Oral mucosa is dry. NECK: No JVD or thyroid enlargement. HEART: Irregular in rhythm. LUNGS: Diminished breath sounds at dependent parts. He has a chest tube in place on the left side. ABDOMEN: Distended and tender. Bowel sounds are normal. EXTREMITIES: Without any cyanosis or clubbing. NEUROLOGICALLY: He is moving all his extremities and able to answer simple questions. He is hard of hearing and using his hearing aid. LABORATORY STUDIES: Today's labs show a white blood cell count of 10.5, hemoglobin 8.5 and hematocrit 29.7, platelet count 153. Sodium 140, potassium was initially 5.6 and a repeat one is 5.0. CO2 29, BUN 62 and creatinine 3.65. Glucose 147 and calcium 8.3. IMAGING: Abdominal x-ray done this morning showed distended bowel loops. PROBLEMS: 1. Acute renal failure superimposed on chronic kidney disease kidney function seems to be leveled off. This is most likely prerenal. He has significant ileus and also has drainage from his chest tube. He had some NG tube suctioning but the NG tube has been now removed. We will continue with IV fluid hydration at 100 mL per hour. 2. Hydropneumothorax - The patient did have a chest tube placed for a pleural effusion. It is still draining a significant amount. 3. Hyperkalemia this morning hyperkalemia was most likely due to hemolysis. His repeat potassium is 5.0. Now his urine output seems to be slowly improving and he is n.p.o. I anticipate improvement in his potassium level by tomorrow. He does not have any metabolic acidosis at present. 4. Anemia his anemia is slightly worse. He is being hydrated and will need close monitoring. At this point there is no emergent need for a transfusion. 5. Abdominal distention and ileus - The patient seems to have significant distention of his bowels. He has been seen by surgery. NG tube was placed which the patient pulled out yesterday. We will wait for further surgical recommendations or intervention. We will continue with IV fluid hydration and try to keep his electrolytes within normal range.
--- NOTE | 2020-08-15 20:30 | IPNPDOC ---
Subjective Date Seen The patient was seen on 08/15/20. Subjective Chief Complaint/HPI Mr. Hughes is an 85 year old male who was sent here from [facility] for orthopedic evaluation. This morning, he was thirsty and wanted to drink. I spoke with general surgery. Okay to try clear liquid diet. Otherwise, patient denies chest pain or dyspnea. Abdomen still distended and tympanic. No BM yet. Objective Physical Examination General Exam: Positive: Cooperative Eye Exam: Negative: Sclera icteric ENT Exam: Positive: Atraumatic Neck Exam: Positive: Supple Chest Exam: Positive: Other (No breath sounds in right lung, left lung clear) Heart Exam: Positive: Tachycardic, Irregular Rhythm Abdomen Exam: Positive: Tenderness, Other (distended) Assessment /Plan Assessment Mr. Hughes is an 85 year old male who was sent here from [facility] for proximal right femur fracture 2/2 mechanical fall. He needs to be medically optimized prior to surgery. He was found to have a large right pleural effusion. Dr. Hollins has drained the effusion, and patient has an entrapped lung. Dr. Hollins to try TPA in an attempt to expand some of the lung. Otherwise, he has been doing well at 2L of NC. General surgery has been following for the ileus. Patient initially had NGT which did drain 675mL. Afterwards patient pulled NGT out. Will try off of NGT and on clear liquid diet. Otherwise, started patient on bowel regimen for ileus. No BM yet. Otherwise, he has SHAJI. Nephrology following and recommendations appreciated. Patient is being given IVF. Plan/VTE VTE Prophylaxis Ordered?: Yes Plan 1. Right proximal femur fracture -Sent from [facility] for orthopedic evaluation -Orthopedic surgery following -Will have to be medically optimized prior to surgery 2. Large right pleural effusion -Dr. Hollins following, recommendations appreciated -There is an entrapped lung that cannot be expanded -Otherwise patient stable on 2L of NC 3. Ileus -General surgery following, recommendations appreciated -Patient had a trial of NGT -Will start bowel regimen. No BM since 08/12/2020 -Will try on clear liquid diet 4. SHAJI on CKD -Nephrology following, recommendations appreciated -Patient on IVF -Trend BMP 5. Atrial fibrillation -Continue on Lopressor -Not on full dose anticoagulation at this time 6. Anemia -Transfused 2u pRBC -Responded appropriately -Continue to monitor 7. Gout -No active disease -Continue allopurinol 8. NIDDM -Continue with POC glucose checks 9. DVT ppx -Lovenox VS, I&O, 24H, Fishbone Vital Signs/I&O Vital Signs Date Time Temp Pulse Resp B/P (MAP) Pulse Ox O2 Delivery O2 Flow Rate FiO2 08/15/20 19:44 96.8 89 20 119/78 (92) Nasal Cannula 2.0 08/15/20 16:00 99 I&O- Last 24 Hours up to 6 AM 08/15/20 06:00 Intake Total 2100 ml Output Total 2105 ml Balance -5 ml Laboratory Data 24H LABS Laboratory Tests 2 08/14/20 23:11: Bedside Glucose (Misc Panel) 144H 08/15/20 05:34: Nucleated Red Blood Cells % (auto) 0.0, Anion Gap 8, Glomerular Filtration Rate 16.8L, Calcium Level 8.4L 08/15/20 10:05: Anion Gap 7L, Glomerular Filtration Rate 16.9L, Calcium Level 8.3L 08/15/20 12:09: Bedside Glucose (Misc Panel) 124H 08/15/20 17:02: Bedside Glucose (Misc Panel) 151H CBC/BMP Laboratory Tests 08/15/20 05:34 08/15/20 10:05 Microbiology Microbiology 08/13/20 Urine Culture - Final, Complete 08/12/20 Blood Culture - Preliminary, Resulted No Growth after 72 hours. All specime... 08/12/20 Blood Culture - Preliminary, Resulted No Growth after 72 hours. All specime... 08/12/20 Body Fluid Culture - Final, Complete BRANDIE LINTON DO Aug 15, 2020 20:30
[2020-08-15] MEDS: TAMSULOSIN 0.4 MG CAP PO SCH (21:25)
[2020-08-15] MEDS: traZODone 50 MG TAB PO SCH (21:25)
[2020-08-15] MEDS: traMADol 50 MG TAB NG PRN (21:26)
[2020-08-16] VITALS (10 sets, daily range): BP systolic 97–127; BP diastolic 54–81
[2020-08-16] MEDS: NS 1,000 ML IV SCH ×3 (02:20→12:17)
[2020-08-16 04:56] LABS: HEMATOCRIT 26.7 % (42.0-52.0); HEMOGLOBIN 7.6 g/dl (13.5-17.5); MEAN CORPUSCULAR HEMOGLOBIN 25.8 pg (27.0-33.0); MEAN CORPUSCULAR HGB CONC 28.5 g/dl (32.0-36.5); MEAN CORPUSCULAR VOLUME 90.5 fl (80.0-96.0); PLATELET COUNT, AUTOMATED 150 10^3/uL (150-450); RED BLOOD COUNT 2.95 10^6/uL (4.30-6.10); WHITE BLOOD COUNT 9.8 10^3/uL (4.0-10.0)
[2020-08-16 05:27] LABS: ALBUMIN 1.9 GM/DL (3.2-5.2); CALCIUM LEVEL 8.1 MG/DL (8.8-10.2); CREATININE FOR GFR 3.32 MG/DL (0.70-1.30); GLOMERULAR FILTRATION RATE 18.9 (>35); MAGNESIUM LEVEL 2.2 MG/DL (1.8-2.4); POTASSIUM SERUM 4.4 MEQ/L (3.5-5.1)
[2020-08-16] MEDS: HumaLOG INSULIN (NovoLOG) PER UNIT SC SCH ×5 (06:00→21:00)
--- NOTE | 2020-08-16 08:03 | REP ---
INDICATION: pneumothorax COMPARISON: 08/15/2020 TECHNIQUE: Portable AP view of the chest FINDINGS: Right-sided chest tube and right pneumothorax are essentially unchanged. Left lower lobe airspace disease and consolidation appears increased from prior examination. IMPRESSION: 1. Right pneumothorax with chest tube unchanged. 2. Increasing left lower lobe airspace disease and consolidation suspected. <Electronically signed by Conor Wallace > 08/16/20 0759
[2020-08-16] MEDS: PANTOPRAZOLE 40MG VIAL (C9113 PER 1) IV SCH (09:17)
[2020-08-16] MEDS: ENOXAPARIN 40MG/0.4ML SYRINGE (J1650 PER 10MG) SC SCH (09:17)
[2020-08-16] MEDS: METOPROLOL TART 12.5 MG PER 1/2 TAB PO SCH ×2 (09:18→21:00)
[2020-08-16] MEDS: ASPIRIN 81 MG CHEW TABLET PO SCH (09:18)
[2020-08-16] MEDS: VITAMIN D 1,000 INTERNATIONAL UNITS TABLET PO SCH (09:18)
[2020-08-16] MEDS: ESCITALOPRAM OXALATE 10 MG TAB (LEXAPRO) PO SCH (09:18)
[2020-08-16] MEDS: DOCUSATE SODIUM 100MG CAPSULE PO SCH ×2 (09:18→21:00)
[2020-08-16] MEDS: SENNA 8.6 MG TAB (SENOKOT) PO SCH (09:18)
[2020-08-16] MEDS: allopurinoL 100 MG TAB PO SCH (09:19)
--- NOTE | 2020-08-16 10:32 | IPN ---
PROGRESS NOTE DATE: 08/15/2020 HISTORY: Patient is being followed for colonic pseudoobstruction in the setting of multiple medical problems with an acute right hip fracture. He has developed some acute renal failure on top of some chronic kidney disease. Vital signs show that over the past 24 hours, he has remained afebrile. His pulse has been in the 80s and 90s generally. His blood pressure has been acceptable. Intake and output show that yesterday he had 1700 in with 1700 out. Much of the fluid was chest tube drainage. He has only 275 mL of urine output recorded yesterday. PHYSICAL EXAMINATION: The patient is lying quietly on the hospital bed dozing when I came in. His first question is if he can have a drink of water. His lips are dry. He is alert, but I do not believe he is fully oriented. HEART EXAM: Shows a regular rhythm in the 70s to 80s. He has a chest tube in the right lateral chest with some bloody fluid in the tubing. There is tidaling in the chest tube. He does have acceptable breath sounds on the left. ABDOMEN: Remains somewhat obese and distended. He does have some bowel sounds present. He is full across the upper abdomen with some mild tympany to percussion, but he is nontender to palpation today. LABORATORY STUDIES: Today show a white count of 10, hemoglobin 8, hematocrit 30 and a platelet count of 153,000. His chemistry profile shows a sodium of 139, potassium 5.6, chloride 104, CO2 27, BUN 59, creatinine 3.68 and a glucose of 157. X-rays today include a chest x-ray. This shows the chest tube in the right chest with a still significant collapse of the right lung, particularly the lower lung hanley with a large air space present. The left lung appears clear. An abdominal x-ray was obtained, which shows air-filled loops of small bowel as well as a large amount of air throughout the colon, particularly the transverse colon. This does not appear to be more distended than it was. IMPRESSION: Patient continues to have evidence for colonic distention. There is some air in his small bowel as well. His nasogastric (NG) tube came out yesterday and he has not seemed to change significantly. Patient still has evidence for a somewhat dilated colon with some air in the small bowel. He is not apparently any worse, despite the NG tube being out over the last 24 hours. He is asking for water and he does appear to have tacky to dry mucous membranes. RECOMMENDATIONS: At this point, I would let him try some sips of clear liquids and advance him to unlimited clear liquids as tolerated. We will continue to monitor his abdomen. NICK
[2020-08-16] MEDS ORDERED: NS 1,000 ML IV SCH (10:41)
--- NOTE | 2020-08-16 12:14 | IPN ---
NEPHROLOGY PROGRESS NOTE DATE: 08/16/2020 SUBJECTIVE: Mr. Hughes is seen this morning at his bedside. His condition is essentially unchanged. His abdominal distention persists and he is not eating much. He is making slightly more urine and still receiving IV fluids at 100 mL per hour. His chest tube is draining. PHYSICAL EXAMINATION: VITAL SIGNS: Temperature 96.3 degrees Fahrenheit, heart rate 76 per minute, and respiratory rate 20 per minute. Blood pressure 121/73 mm of mercury and oxygen saturation is 91% on 2 liters oxygen. HEENT: His head is atraumatic. NECK: Supple and without JVD or thyroid enlargement. HEART: Regular. LUNGS: Diminished breath sounds. Chest tube in the left side is present. ABDOMEN: Distended and mildly tender. Bowel sounds are present. EXTREMITIES: Without any cyanosis or clubbing. NEUROLOGICALLY: He is able to answer questions and seems to be at his baseline mentation. LABORATORY STUDIES: Today's labs show a white blood cell count of 9.8, hemoglobin 7.6 and hematocrit 26.7, platelet count 150. Sodium 139, potassium 4.4, CO2 28, BUN 59 and creatinine 3.32, glucose 153 and calcium 8.1. PROBLEMS: 1. Acute kidney injury superimposed on chronic kidney disease - kidney function is slowly improving. His urine output is gradually increasing and we will continue with the current IV fluids at 100 mL per hour. The patient has severely distended bowels and ileus. His oral intake is minimal. 2. Anemia his anemia has worsened due to most likely hemodilution. I would recommend to transfuse him 2 units of packed red blood cells. 3. Ileus his bowels are distended markedly and he has not had any bowel movement. He has been seen by Surgery. Currently he is without NG tube and remains to be seen if his bowels start working. 4. Right hip fracture and right knee injury - The patient is medically not stable for any surgical intervention at present. 5. Hydropneumothorax - The patient has a chest tube in place and is being followed by thoracic surgery.
--- NOTE | 2020-08-16 12:54 | IPNPDOC ---
Subjective Date Seen The patient was seen on 08/16/20. Subjective Chief Complaint/HPI Mr. Hughes is an 85 year old male who was sent here from [facility] for orthopedic evaluation. This morning, he was seen consuming his clear liquid breakfast. Denies chest pain, dyspnea, or abdominal pain. Abdomen still distended. No BM yet Objective Physical Examination General Exam: Positive: Cooperative Eye Exam: Negative: Sclera icteric ENT Exam: Positive: Atraumatic Neck Exam: Positive: Supple Chest Exam: Positive: Other (No breath sounds in right lung, left lung clear) Heart Exam: Positive: Tachycardic, Irregular Rhythm Abdomen Exam: Positive: Other (distended) Assessment /Plan Assessment Mr. Hughes is an 85 year old male who was sent here from [facility] for proximal right femur fracture 2/2 mechanical fall. He needs to be medically optimized prior to surgery. He was found to have a large right pleural effusion. Dr. Hollins has drained the effusion, and patient has an entrapped lung. Otherwise, he has been doing well at 2L of NC. Plan to leave chest tube in for when patient goes down for orthopedic surgery. General surgery has been following for the ileus. Patient initially had NGT which did drain 675mL. Afterwards patient pulled NGT out. Continue with clear liquid diet and BM regimen. No BM yet. Otherwise, he has SHAJI. Nephrology following and recommendations appreciated. Patient is being given IVF. This morning, patient's H&H has dropped. Patient to receive 2u pRBC Plan/VTE VTE Prophylaxis Ordered?: Yes Plan 1. Right proximal femur fracture -Sent from [facility] for orthopedic evaluation -Orthopedic surgery following -Will have to be medically optimized prior to surgery 2. Large right pleural effusion -Dr. Hollins following, recommendations appreciated -There is an entrapped lung that cannot be expanded -Otherwise patient stable on 2L of NC -Chest tube to stay for orthopedic surgery. 3. Ileus -General surgery following, recommendations appreciated -Patient had a trial of NGT -Continue bowel regimen. No BM since 08/12/2020 -Will try on clear liquid diet 4. SHAJI on CKD -Nephrology following, recommendations appreciated -Patient on IVF -Trend BMP 5. Atrial fibrillation -Continue on Lopressor -Hold lovenox as patient requires blood 6. Anemia -Transfused 2u pRBC. Transfusing an additional 2u pRBC -Responded appropriately -Continue to monitor 7. Gout -No active disease -Continue allopurinol 8. NIDDM -Continue with POC glucose checks 9. DVT ppx -Holding lovenox as patient is requiring blood. DVT ppx with SCD and TEDs VS, I&O, 24H, Fishbone Vital Signs/I&O Vital Signs Date Time Temp Pulse Resp B/P (MAP) Pulse Ox O2 Delivery O2 Flow Rate FiO2 08/16/20 12:00 97.0 91 20 108/60 (76) 99 High Flow Cannula 2.0 I&O- Last 24 Hours up to 6 AM 08/16/20 06:00 Intake Total 2375 ml Output Total 1220 ml Balance 1155 ml Laboratory Data 24H LABS Laboratory Tests 2 08/15/20 17:02: Bedside Glucose (Misc Panel) 151H 08/16/20 00:14: Bedside Glucose (Misc Panel) 158H 08/16/20 04:30: Nucleated Red Blood Cells % (auto) 0.0, Anion Gap 8, Glomerular Filtration Rate 18.9L, Calcium Level 8.1L, Phosphorus Level 5.0H, Magnesium Level 2.2, Albumin 1.9L 08/16/20 06:18: Bedside Glucose (Misc Panel) 157H CBC/BMP Laboratory Tests 08/16/20 04:30 Microbiology Microbiology 08/13/20 Urine Culture - Final, Complete 08/12/20 Blood Culture - Preliminary, Resulted No Growth after 72 hours. All specime... 08/12/20 Blood Culture - Preliminary, Resulted No Growth after 72 hours. All specime... 08/12/20 Body Fluid Culture - Final, Complete BRANDIE LINTON DO Aug 16, 2020 12:54
--- NOTE | 2020-08-16 18:27 | IPN ---
PROGRESS NOTE DATE: 08/16/2020 HISTORY: Patient has been followed since August 12, 2020 for evidence of an acute colonic pseudoobstruction associated with his right hip fracture. He was initially treated with nasogastric (NG) tube, decompression and nothing by mouth (NPO) status. He developed some acute renal failure on top of chronic kidney disease. He had his right pleural effusion aspirated and then a chest tube was placed, but his right lung has failed to expand. His NG tube was discontinued on August 14, 2020. He is not complaining of any abdominal pain currently. He was started on some clear liquids yesterday. Vital signs show that the patient has been afebrile over the past 48 hours. His pulse is in the 70s to 90s generally, with a good blood pressure. Intake and output show that yesterday he had 1800 in with 1400 out; 1000 of that was chest tube drainage and 400 urine output. PHYSICAL EXAMINATION: The patient appears somewhat more alert and small stock facer today. He is more talkative. He is not complaining of any abdominal pain currently. HEART EXAM: Shows a regular rhythm. He has clear breath sounds on the left and diminished breath sounds on the right. The right chest tube is draining some serosanguineous fluid and there is some tidaling in the chest tube container. ABDOMEN: Remains obese and somewhat distended. He does have some bowel sounds present. The abdomen is fairly soft. There is some tympany to percussion across the upper mid-abdomen. With firmer pressure he has some mild discomfort to pressure. LABORATORY STUDIES: Today show a white count of 10, hemoglobin 8, hematocrit 27 and a platelet count of 150,000. His chemistry profile shows normal electrolytes with a BUN of 59, creatinine 3.3, which is down slightly, and a glucose of 153. His albumin is 1.9. IMAGING: Today includes a chest x-ray which shows persistent collapse of the right lung with a chest tube in place with a pneumothorax. IMPRESSION: Patient remains stable at this point. His abdomen is stable or perhaps minimally improved. He has been tolerating some clear liquids, though has not had much at this point. The abdomen is full and there is still evidence for some colonic distention, but he has no significant tenderness. PLAN: Patient will remain on his clear liquids. I will order a dose of Dulcolax to see if this will stimulate things as far as his bowel function goes. I think he would be at relatively high risk to try neostigmine at this point. We will continue to monitor only and see if he will improve his bowel function over the next few days. MTDD
[2020-08-16] MEDS: traZODone 50 MG TAB PO SCH (20:59)
[2020-08-16] MEDS: TAMSULOSIN 0.4 MG CAP PO SCH (21:00)
[2020-08-16] MEDS: traMADol 50 MG TAB NG PRN (21:03)
[2020-08-17] VITALS: BP 113/72
[2020-08-17 04:00] VITALS: BP 134/70
[2020-08-17] MEDS: NS 1,000 ML IV SCH (04:54)
[2020-08-17] MEDS: METOPROLOL TART 12.5 MG PER 1/2 TAB PO SCH ×2 (07:40→21:20)
[2020-08-17] MEDS: ASPIRIN 81 MG CHEW TABLET PO SCH (07:40)
[2020-08-17] MEDS: VITAMIN D 1,000 INTERNATIONAL UNITS TABLET PO SCH (07:40)
[2020-08-17] MEDS: SENNA 8.6 MG TAB (SENOKOT) PO SCH (07:40)
[2020-08-17] MEDS: HumaLOG INSULIN (NovoLOG) PER UNIT SC SCH ×4 (07:41→21:00)
[2020-08-17] MEDS: ESCITALOPRAM OXALATE 10 MG TAB (LEXAPRO) PO SCH (07:41)
[2020-08-17] MEDS: allopurinoL 100 MG TAB PO SCH (07:41)
[2020-08-17] MEDS: DOCUSATE SODIUM 100MG CAPSULE PO SCH ×2 (07:41→21:20)
[2020-08-17] MEDS: PANTOPRAZOLE 40MG VIAL (C9113 PER 1) IV SCH (07:42)
[2020-08-17] MEDS: traMADol 50 MG TAB NG PRN ×2 (07:42→21:20)
[2020-08-17 08:00] VITALS: BP 133/73
[2020-08-17 08:12] LABS: HEMATOCRIT 30.8 % (42.0-52.0); HEMOGLOBIN 9.5 g/dl (13.5-17.5); MEAN CORPUSCULAR HEMOGLOBIN 27.5 pg (27.0-33.0); MEAN CORPUSCULAR HGB CONC 30.8 g/dl (32.0-36.5); PLATELET COUNT, AUTOMATED 137 10^3/uL (150-450); RED BLOOD COUNT 3.46 10^6/uL (4.30-6.10); WHITE BLOOD COUNT 9.6 10^3/uL (4.0-10.0)
--- NOTE | 2020-08-17 08:13 | REP ---
INDICATION: pneumothorax. COMPARISON: Comparison chest x-ray 16 August 2020. TECHNIQUE: Portable upright AP chest radiograph. FINDINGS: A right chest tube remains in place at the base. A moderate size right-sided hydropneumothorax persists. Partially aerated right upper lobe is again seen with some peripheral opacity representing persistent atelectasis. Moderate cardiac enlargement is again observed. Pulmonary vasculature and interstitial markings are somewhat congested in the left lung as before.. IMPRESSION: Findings essentially unchanged from the previous day's study as above.. <Electronically signed by Dakota Bradley > 08/17/20 [id number]
[2020-08-17 08:37] LABS: CALCIUM LEVEL 7.8 MG/DL (8.8-10.2); CREATININE FOR GFR 2.61 MG/DL (0.70-1.30); GLOMERULAR FILTRATION RATE 24.9 (>35)
[2020-08-17] MEDS ORDERED: BISACODYL 10 MG SUPP PR SCH (09:00)
[2020-08-17] MEDS ORDERED: LIDOCAINE 5% (LIDODERM) PATCH TD SCH (09:00)
[2020-08-17] MEDS: diphenhydrAMINE CREAM 30GM TOP PRN (10:57)
[2020-08-17 11:46] LABS: C REACTIVE PROTEIN QUANTITATIV 11.2 MG/DL (0.00-0.30)
[2020-08-17 12:15] LABS: ERYTHROCYTE SEDIMENTATION RATE 67 mm/hr (0-20)
--- NOTE | 2020-08-17 12:40 | IPN ---
PROGRESS NOTE DATE: 08/16/2020 Mr. Hughes is still in considerable amounts of pain when being moved with his hip. He is not complaining of any shortness of breath, lying comfortably in bed. There is no air leak that I can see today. His vital signs show maximum temperature of 97.2 with a heart rate that ranges between 67-114 in atrial fibrillation with a respiratory rate of 18-21 without the use of accessory muscles, who is 91%-100% saturated on 2 liters nasal cannula, and whose blood pressure is ranging between 127/59 and 97/54. His intake and output for the 24 hours has been recorded as 1775 in and 1410 out, for a positivity of 365 mL. He has put out 1010 mL from the chest tube. He weighs 97.2 kg today compared to 88.8 kg yesterday. PHYSICAL EXAMINATION: His lungs show decreased breath sounds in the right hemithorax. I cannot sit him up to listen to his back. He has scattered rhonchi on the right side, but I heard normal vesicular sounds on the left side. Cardiac exam shows a 2-3 over 6 systolic ejection murmur at the right upper sternal border. I have not detected this before. S1 and S2 are normal. I cannot feel his point of maximal impulse (PMI). Abdomen is tympanitic and slight distended. He has amphoric bowel sounds. It is essentially nontender, however, except for the right upper quadrant, which is tender to deep palpation. Extremities show trace pretibial edema, no calf tenderness, no differential swelling of the upper extremities. Skin is warm, dry, and perfused without cyanosis or mottling, including that of the nailbeds and knees. Neck is supple. There is no jugular venous distention. No subcutaneous emphysema. Trachea is midline. Mouth shows the mucous membranes to be pink and moist. Lips and commissures without lesions. No thrush. Eyes show his pupils to be equal and reactive. Extraocular motion intact. Sclerae anicteric. Neurologic shows II-XII intact. Normal gross motor, gross sensation intact. Gait is not tested. Psychiatric shows him to be confused but now at least follow commands. His white count today is 9.8 with a hemoglobin and hematocrit of 7.6 and 26.7, down from 8.5 and 29.7, respectively. His platelet count is 150 and stable. I cannot explain this from hemodilution, as he is only positive 365 mL. His chemistries show normal electrolytes with a BUN and creatinine of 59 and 3.32 with a glucose of 153, a calcium of 8.1, and a magnesium of 2.2. Albumin is 1.9. His chest x-ray today shows his lung entrapped and not fully expanded to the chest wall. It is entrapped both medially and laterally. His CT scan done 2 days ago, which I have discussed, shows again the lung entrapped in a rind with a chest tube in good place. There is a residual air-fluid level. There are no endobronchial lesions, and it looks as though the solid portions of the lung represent compression. He has air bronchograms all throughout the lower lobe. I am not convinced I see a primary or metastatic malignant lesion. IMPRESSION: 1. Chronic pleural effusion, mostly likely very longstanding, right side. 2. Entrapped right lung. 3. Hydropneumothorax. 4. Chronic renal failure. 5. Hypertension. 6. Dementia. 7. Ileus. 8. Trochanteric fracture of the right hip. 9. Atrial fibrillation. 10. Obstructive sleep apnea. 11. History of coronary artery disease, status post myocardial infarction. PLAN AND DISCUSSION: He has been started on clear liquids today. My presumption is that orthopedics is waiting for him to be stabilized from his ileus. As I discussed yesterday, as far as his chest tube is concerned, I will plan to keep that in until after his procedure. I could very well take it out, and the fluid would merely reaccumulate around the entrapped lung. The fluid accumulation would not embarrass his pulmonary capacity any more than the entrapment has. He has obviously auto-regulated himself with most of the blood flow going to the left lung and therefore able to oxygenate and ventilate.
--- NOTE | 2020-08-17 14:07 | IPN ---
PROGRESS NOTE DATE: 08/17/2020 Mr. Hughes's situation has now become much more difficult in light of him having severe aortic stenosis with an aortic valve area of 0.7 and a mean gradient of 42 mmHg. Cardiology is recommending addressing his aortic valve prior to his hip surgery. That will mean a transfer to [place] and potential evaluation for an aortic valve replacement, either open or transcatheter. This is still in light of his fractured hip. If he does have an aortic replacement, he will need anticoagulation. He really is in a rock and hard place with regard to what procedure to do first, as general anesthesia or even spinal anesthesia could cause decreased coronary perfusion with irreversible sudden from his aortic stenosis. His vital signs show a maximum temperature today of 97.4 with a heart rate that ranges between 72-103 in a sinus rhythm, respiratory rate 18-20 without the use of accessory muscles, who is 93%-96% saturated on 2 liters nasal cannula and whose blood pressure is ranging between 113/72 to 134/70. His intake and output for the past 24 hours has been recorded as 3820 in and 905 out, for a positivity of 2915 mL. He has put out 302 mL from the chest tube. There is no air leak. His weight today is 92.5 kg compared to 93.7 kg yesterday. PHYSICAL EXAMINATION: I still cannot sit him up to listen to his posterior chest; however, anteriorly his breath sounds are markedly reduced on the right side and show fairly normal vesicular sounds on the left. Cardiac exam shows the 3/6 systolic ejection murmur heard best at the right upper sternal border, which I first heard yesterday. I cannot feel his point of maximal impulse (PMI). S1 and S2 are normal. He is in a regular rate and rhythm. Abdomen is soft and nontender. Bowel sounds are positive but still amphoric. He is having flatus and has had a bowel movement this morning. Extremities show trace pretibial edema, no calf tenderness on the left and 1+ on the right. He looks as though he has extravasated blood going down into his right lower extremity. Skin is warm, dry, and perfused without cyanosis or mottling, including that of the nailbeds and knees. Neck is supple. There is no jugular venous distention. No subcutaneous emphysema. Trachea is midline. Mouth shows the mucous membranes to be pink and moist. Lips and commissures without lesions. No thrush. Eyes show his pupils to be equal and reactive. Extraocular motion intact. Sclerae anicteric. Neurologic shows II-XII intact. Normal gross motor, gross sensation intact. Gait is not tested. Psychiatric shows him to be a lot more responsive today and follows commands. IMPRESSION: 1. Chronic pleural effusion, most likely longstanding, right side. 2. Entrapped right lung 3. Hydropneumothorax. 4. Chronic renal failure. 5. Hypertension. 6. Dementia. 7. Ileus. 8. Trochanteric fracture of the right hip. 9. Atrial fibrillation. 10. Obstructive sleep apnea. 11. History of coronary artery disease, status post myocardial infarction. 12. Severe aortic stenosis. 13. Severely depressed left ventricular function with an estimated ejection fraction of 35%. PLAN AND DISCUSSION: See my introductory comments above. I suspect that he will eventually be transferred to [place], and they will make a judgment call as to whether to fix his hip first or proceed to addressing his aortic valve. Either possibility is fraught with complications and difficulties. As far as his chest tube is concerned, I have been keeping it in until potential operation. If he is to be transferred, I will keep the chest tube in for transport, and it can be removed at any time, as his fluid is just going to reaccumulate from his entrapped lung. He certainly is not a candidate for decortication. I have already tried a tPA pleurolysis to no effect.
[2020-08-17] MEDS ORDERED: ACETAMINOPHEN TAB 650MG DOSE (2X325MG) PO PRN (15:15)
--- NOTE | 2020-08-17 16:38 | REP ---
INDICATION: right knee swelling. COMPARISON: None. TECHNIQUE: Right lower extremity duplex venous sonography. FINDINGS: The deep veins are anechoic and fully compressible from the groin to the popliteal fossa in the right lower extremity. Color flow imaging is homogeneous. Spectral Doppler interrogation demonstrates intact respiratory variation in flow and normal manual augmentation of flow. There is no evidence of deep vein thrombosis. IMPRESSION: Negative right lower extremity duplex venous ultrasound. No evidence of deep vein thrombosis. <Electronically signed by Dakota Bradley > 08/17/20 [id number]
--- NOTE | 2020-08-17 16:43 | REP ---
INDICATION: knee pain. COMPARISON: Comparison knee radiographs are from 12 August 2020.. TECHNIQUE: Helical scanning is acquired and 3 mm axial images are generated. Coronal and sagittal MPR images are generated. FINDINGS: Patient is status post bilateral total knee arthroplasty. There is considerable spray artifact at the level of the metallic components. They appear well aligned with respect to each other and there are nightm[place] bones however. No bony erosive or destructive lesion is seen. No periarticular or other soft tissue mass or abnormal fluid collection is seen. No fracture is noted. Some vascular calcification is observed. IMPRESSION: Status post right knee arthroplasty well aligned components. No bony destructive lesion or soft tissue abnormality. <Electronically signed by Dakota Bradley > 08/17/20 [id number]
--- NOTE | 2020-08-17 16:49 | REP ---
INDICATION: AP pelvis XR for surgical planning, right hip fx. COMPARISON: Comparison study 15 August 2020 and 13 August 2019 of .. TECHNIQUE: Single AP view of the pelvis. FINDINGS: There is an inter trochanteric fracture of the right proximal femur in mild Ve[place]. The bony pelvic ring is intact. There are mild osteoarthritic changes the hips bilaterally. Degenerative disc changes are noted in the lower lumbar spine. There is a ileus pattern in the bowel gas. IMPRESSION: Inter trochanteric fracture right hip. Abdominal ileus. <Electronically signed by Dakota Bradley > 08/17/20 [id number]
--- NOTE | 2020-08-17 17:49 | IPNPDOC ---
Subjective Date Seen The patient was seen on 08/17/20. Subjective Chief Complaint/HPI Mr. Hughes is an 85 year old male who was sent here from [facility] for orthopedic evaluation. This morning, he denied chest pain, dyspnea, or abdominal pain. He has a large BM. Otherwise, patient has severe aortic stenosis on echocardiogram. Cardiology recommended transfer for TAVR before surgery. Spoke with family about transfer. They were unsure. They were already aware that he dose have severe aortic stenosis, but they were initially going to watch it. They wanted to know what would happen if they did not have the hip surgery. Reached out to orthopedic surgery. Severe aortic stenosis would be a contraindication for general anesthesia, but not for epidural anesthesia. Orthopedic surgeon to reach out to family about pursuing surgery tomorrow. Objective Physical Examination General Exam: Positive: Cooperative Eye Exam: Negative: Sclera icteric ENT Exam: Positive: Atraumatic Neck Exam: Positive: Supple Chest Exam: Positive: Other (No breath sounds in right lung, left lung clear) Heart Exam: Positive: Tachycardic, Irregular Rhythm Abdomen Exam: Positive: Other (distended) Assessment /Plan Assessment Mr. Hughes is an 85 year old male who was sent here from [facility] for proximal right femur fracture 2/2 mechanical fall. He needs to be medically optimized prior to surgery. He was found to have a large right pleural effusion. Dr. Hollins has drained the effusion, and patient has an entrapped lung. Otherwise, he has been doing well at 2L of NC. Plan to leave chest tube in for when patient goes down for orthopedic surgery. General surgery has been following for the ileus and resolved. Nephrology follow for SHAJI which has been improving. Spoke with orthopedic surgery. Planning for surgery tomorrow morning with either epidural or spinal anesthesia. Plan/VTE VTE Prophylaxis Ordered?: Yes Plan 1. Right proximal femur fracture -Sent from [facility] for orthopedic evaluation -Orthopedic surgery following -Planning for epidural or spinal anesthesia for surgery tomorrow morning. NPO tonight. 2. Large right pleural effusion -Dr. Hollins following, recommendations appreciated -There is an entrapped lung that cannot be expanded -Otherwise patient stable on 2L of NC -Chest tube to stay for orthopedic surgery. 3. Ileus -General surgery following, recommendations appreciated -Patient had a trial of NGT -Continue bowel regimen. No BM since 08/12/2020 -Had first BM today on 08/17/2020 4. SHAJI on CKD -Nephrology following, recommendations appreciated -Patient on IVF -Trend BMP -Improving 5. Atrial fibrillation -Continue on Lopressor -Hold lovenox as patient requires blood 6. Anemia -Transfused 4u pRBC. -Responded appropriately -Continue to monitor 7. Gout -No active disease -Continue allopurinol 8. NIDDM -Continue with POC glucose checks 9. DVT ppx -Holding lovenox as patient is requiring blood. DVT ppx with SCD and TEDs Disposition: Plan for right hip fracture surgery tomorrow with epidural or spinal anesthesia. VS, I&O, 24H, Fishbone Vital Signs/I&O Vital Signs Date Time Temp Pulse Resp B/P (MAP) Pulse Ox O2 Delivery O2 Flow Rate FiO2 08/17/20 08:12 20 Room Air 08/17/20 08:00 2.0 08/17/20 08:00 96.6 72 133/73 (93) 96 I&O- Last 24 Hours up to 6 AM 08/17/20 06:00 Intake Total 2620 ml Output Total 855 ml Balance 1765 ml Laboratory Data 24H LABS Laboratory Tests 2 08/16/20 20:53: Bedside Glucose (Misc Panel) 75L 08/17/20 07:03: Nucleated Red Blood Cells % (auto) 0.0, Erythrocyte Sedimentation Rate 67H, An ion Gap 9, Glomerular Filtration Rate 24.9L, Calcium Level 7.8L, C-Reactive Protein, Quantitative 11.20H 08/17/20 07:33: Bedside Glucose (Misc Panel) 152H 08/17/20 12:22: Bedside Glucose (Misc Panel) 132H 08/17/20 12:32: Coronavirus (COVID-19)(PCR) NEGATIVE CBC/BMP Laboratory Tests 08/17/20 07:03 Microbiology Microbiology 08/13/20 Urine Culture - Final, Complete 08/12/20 Blood Culture - Final, Complete NO GROWTH AFTER 5 DAYS 08/12/20 Blood Culture - Final, Complete NO GROWTH AFTER 5 DAYS 08/12/20 Body Fluid Culture - Final, Complete JOANN LINTONCaitlin UmanaMayelin FIERRO Aug 17, 2020 17:49
[2020-08-17] MEDS ORDERED: NS 1,000 ML IV SCH (19:45)
[2020-08-17 20:00] VITALS: BP 124/65
[2020-08-17] MEDS ORDERED: **NOTE PATIENT COMMENT** MISC XX SCH (21:00)
[2020-08-17] MEDS: traZODone 50 MG TAB PO SCH (21:19)
[2020-08-17 21:20] VITALS: BP 124/65
[2020-08-17] MEDS: TAMSULOSIN 0.4 MG CAP PO SCH (21:20)
--- NOTE | 2020-08-17 22:03 | IPN ---
NEPHROLOGY PROGRESS NOTE DATE: 08/17/2020 SUBJECTIVE: The patient was seen and examined at the bedside today morning. He is afebrile, hemodynamically stable but otherwise clinically deteriorating. He continues to get IV fluid hydration which has helped improve his renal function, however he has a chest tube in the right side. He has a persistent ileus. He has a right hip fracture which has not been operated on, and I was told by the Hospitalist service that he got the echocardiogram done which showed severe aortic stenosis and Cardiology is recommending a TAVR procedure before he gets the right hip surgery done. OBJECTIVE: VITAL SIGNS: Temperature is 96.6 degrees Fahrenheit, blood pressure 133/73, pulse is 72, respiratory rate of 18, saturating 96% on nasal cannula at 2 liters. INTAKE AND OUTPUT: Urine output recorded as 600 mL yesterday; 400 mL so far today since overnight. Chest tube drainage is 120 mL. Weight in the bed scale is 92.5 kg. PHYSICAL EXAMINATION: GENERAL APPEARANCE: The patient is awake, alert, oriented x2, morbidly obese, laying in the bed. HEAD AND NECK: Extraocular muscles intact. Pupils are equally round and reactive to light. Mucous membranes are moist. Neck is supple. There is no significant jugular venous distention. CARDIOVASCULAR: S1, S2, regular rate. EXTREMITIES: 1+ edema of the bilateral lower extremities. RESPIRATORY: Mildly decreased breath sounds at the bases. The patient has a chest tube on the right side. ABDOMEN: Obese, distended, however bowel sounds are positive. GENITOURINARY: He has an indwelling Bradley catheter. MUSCULOSKELETAL: He has a Lidoderm patch on the right hip and he has a right hip fracture with decreased range of movement. FOOD HANDLER: The patient is oriented x2. He follows commands and moves the bilateral upper extremities. LAB REVIEW: CBC showed a white blood cell count of 9.6, hemoglobin 9.5, platelet count 137. BMP showed sodium of 139, potassium is 4, chloride 105, bicarbonate 25, BUN 50, creatinine is 2.6. It was 3.3 yesterday. C-reactive protein is 11.2. Microbiology: Blood cultures and urine cultures are negative so far. IMAGING: He had a vascular ultrasound done which showed negative right lower extremity DVT. CT scan was also done which showed status post a right knee arthroplasty, well aligned components, no bony dissection or lesion of the soft tissue. A pelvis x-ray was done today which showed intratrochanteric fracture of the right hip and an abdominal ileus. Echocardiogram report showed atrial fibrillation, normal LV size, LV ejection fraction showed hypokinesis with ejection fraction of 35-40%, heavily calcified aortic valve with severe aortic valve stenosis. Moderate to severe pulmonary hypertension. CURRENT INPATIENT MEDICATIONS: The patient is getting normal saline at 100 mL an hour. No other significant change in the other medications at this time. ASSESSMENT AND PLAN: 1. Acute renal failure superimposed on chronic kidney disease - The patient continues to be on IV fluid hydration. He got two units of blood yesterday as well which has helped improve his renal function as well. His creatinine is improved from 3.3 to 2.6. Continue gentle IV fluid hydration. 2. Anemia and recent hip fracture - The patient is status post 2 units of PRBC transfusion. One more unit is being transfused at this time. 3. Severe aortic valve stenosis - The patient is going to be discussed with hospitals in [place] for a possible transfer and evaluation for TAVR procedure. 4. Right hip fracture - The patient has a right intratrochanteric hip fracture but clinically he is not stable for surgery at this time. 5. [facility] is on board. Initially he was managed with NG tube and suctioning but he pulled it out later on. He is being conservatively managed at this time. 6. Atrial fibrillation he is getting Metoprolol and currently he is not being anticoagulated because of hip fracture. 7. Disposition - The patient overall has a poor prognosis because of his advanced age with hip fracture, severe aortic stenosis, abdominal ileus and right sided pleural effusion. He is currently not a candidate for hemodialysis. I would conservatively manage the patient with medications only.
[2020-08-17] MEDS ORDERED: ONDA4INJ4 IV (22:23)
[2020-08-17] MEDS ORDERED: LIDO5TD TD (22:23)
[2020-08-17] MEDS ORDERED: NS10IV IV (22:23)
[2020-08-17] MEDS ORDERED: INSUHUMDS SC ×2 (22:23)
[2020-08-17] MEDS ORDERED: DOK1CAP7 PO (22:23)
[2020-08-17] MEDS ORDERED: TRAM50TA2 NG (22:23)
[2020-08-17] MEDS ORDERED: SENN18TA PO (22:23)
--- NOTE | 2020-08-17 22:35 | DS.PDOC ---
Discharge Summary General Date of Admission Aug 12, 2020 at 00:46 Date of Discharge Aug 17, 2020 Attending Physician: BRANDIE LINTON DO Specialist/Consultants Involve Orthopedic surgery, Dr. Adams and Dr. Robles CT surgery, Dr. Hollins General surgery, Dr. Renee Nephrology, Dr. Andrews Discharge Summary PROCEDURES PERFORMED DURING STAY: 08/13/2020 - IR: Right thoracentesis 08/13/2020 - CT surgery: Right lateral chest tube placement for hydropneumothorax after right thoracentesis 08/14/2020 - CT surgery: Attempted TPA pleurolysis of entrapped lung (from [employer] right pleural effusion) ADMITTING DIAGNOSES: 1. Fall resulting in a proximal right femur fracture 2. Normocytic anemia 3. Large right pleural effusion 4. Atrial fibrillation 5. NIDDM 6. CKD stage 4 7. IRENE 8. HTN 9. HFpEF 10. Gout 11. GERD DISCHARGE DIAGNOSES: 1. Fall resulting in a proximal right femur fracture 2. 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 Ileus 4. SHAJI on CKD 5. Severe aortic stenosis 6. Moderately severe pulmonary arterial hypertension 7. IRENE 8. HTN 9. Anemia 10. Gout 11. GERD COMPLICATIONS/CHIEF COMPLAINT: Hip Fracture. HISTORY OF PRESENT ILLNESS: Mr. Hughes is an 85 year old male with NIDDM, CKD stage 4, and CAD who was transferred here from [facility] for Orthopedic evaluation. He has been at [facility] for rehab for his right knee arthroplasty. He was about ready for discharge home (per family) when he fell backwards while trying to get up. He subsequently developed right leg and knee pain. He denied dizziness, dyspnea, chest pain, palpitations, or vertigo prior to the fall. He felt that his legs gave out and is unsure if he had lost consciousness. Patient was accepted for transfer for orthopedic evaluation for right hip fracture. HOSPITAL COURSE: When patient arrived, he was found to have a large right pleural effusion, ileus, and SHAJI. Orthopedic team requested patient to be medically stabilized prior to surgery. IR initially drained the fluid, but then patient had a right hydropneumothorax. CT surgery was consulted who placed a right chest tube. CT chest demonstrated scarring suggesting that the lung was entrapped. CT surgery attempted TPA pleural lysis but was not successful. Ct surgery recommended that we leave the chest tube for the hip surgery and remove the chest tube after the surgery. Otherwise, patient also developed N/V and abdominal pain and had an Ileus. Abdomen became distended and tympanic. General surgery was consulted and NGT was placed on 08/13/2020. It had drained 675mL of fluid. Patient was put on a bowel regimen and had his first BM on 08/17/2020. Otherwise, patient developed an SHAJI. Unknown baseline, but on admission, he came with a creatinine of 1.73, then peaked at 3.68 before trending downwards to 2.61 today. SHAJI most likely pre- renal and has been responding to fluids. During his pre-op evaluation, an echocardiogram was ordered. It had demonstrated severe aortic stenosis. Spoke with our beef grader who recommended transfer for TAVR. Spoke with family who feared that the patient may from the TAVR. Reached out to [facility]. Their poker machine attendant recommended that we fix the hip before considering TAVR. Spoke with hospitalist, Dr. Magana, who has accepted the patient. The daughter, Arnaud, is the point of contact. Her number is [phone] DISCHARGE MEDICATIONS: Please see below. ALLERGIES: Please see below. PHYSICAL EXAMINATION ON DISCHARGE: VITAL SIGNS: Please see below. GENERAL: Comfortable, no apparent distress HEENT: Sclera clear NECK: Supple CARDIOVASCULAR EXAMINATION: Irregular, but rate controlled RESPIRATORY EXAMINATION: No breath sounds from right lung. Clear to auscultation on left ABDOMINAL EXAMINATION: Distended, but soft, decreased bowel sounds EXTREMITIES: Bilateral pitting edema SKIN: Warm and dry NEUROLOGICAL EXAMINATION: No focal deficits noted PSYCHIATRIC EXAMINATION: Confused, not A&Ox3 LABORATORY DATA: Please see below. IMAGING: (Radiologist interpretation) XR pelvis Inter trochanteric fracture right hip. Abdominal ileus. XR hip Slightly comminuted and impacted fracture through the inter trochanteric portion of the right hip with mild varus. CT right knee Status post right knee arthroplasty well aligned components. No bony destructive lesion or soft tissue abnormality. Thoracentesis US Ultrasound-guided right thoracentesis with removal of [address] chest after thoracentesis Findings consistent with a entrapped lung with incomplete re-expansion following thoracostomy drainage. Large persistent right-sided hydropneumothorax with partial reoccur inflation of the right upper lobe. Extensive atelectasis on the right. Small left pleural effusion. Granulomatous changes. Cardiomegaly and aortic valvular calcification noted. PROGNOSIS: Guarded ACTIVITY: Bedrest DIET: Clear liquid diet DISCHARGE PLAN: Transfer to [facility] DISPOSITION: Transfer to [facility] DISCHARGE INSTRUCTIONS: 1. Follow up with Hospitalist, Dr. Magana. Plan for right hip repair DISCHARGE CONDITION: Stable Total time spent on discharge planning, discharge summary, and medication reconc iliation: 80 minutes Of note: Point of contact is Arnaud (daughter). Number is [phone] Vital Signs/I&Os Vital Signs Date Time Temp Pulse Resp B/P (MAP) Pulse Ox O2 Delivery O2 Flow Rate FiO2 08/17/20 21:20 77 124/65 08/17/20 21:20 20 08/17/20 20:00 96.9 98 High Flow Cannula 2.0 I&O- Last 24 Hours up to 6 AM0 08/17/20 06:00 Intake Total 2620 ml Output Total 855 ml Balance 1765 ml Laboratory Data Labs 24H Laboratory Tests 2 08/17/20 07:03: Nucleated Red Blood Cells % (auto) 0.0, Erythrocyte Sedimentation Rate 67H, Anion Gap 9, Glomerular Filtration Rate 24.9L, Calcium Level 7.8L, C-Reactive Protein, Quantitative 11.20H 08/17/20 07:33: Bedside Glucose (Misc Panel) 152H 08/17/20 12:22: Bedside Glucose (Misc Panel) 132H 08/17/20 12:32: Coronavirus (COVID-19)(PCR) NEGATIVE 08/17/20 17:33: Bedside Glucose (Misc Panel) 73L 08/17/20 21:07: Bedside Glucose (Misc Panel) 125H CBC/BMP Laboratory Tests 08/17/20 07:03 FSBS Laboratory Tests Test 08/17/20 07:33 08/17/20 12:22 08/17/20 17:33 08/17/20 21:07 Range/Units Bedside Glucose (Misc Panel) 152 132 73 125 83-110 MG/DL Microbiology Microbiology 08/13/20 Urine Culture - Final, Complete 08/12/20 Blood Culture - Final, Complete NO GROWTH AFTER 5 DAYS 08/12/20 Blood Culture - Final, Complete NO GROWTH AFTER 5 DAYS 08/12/20 Body Fluid Culture - Final, Complete Discharge Medications Scheduled Allopurinol (Allopurinol) 100 Mg Tablet, 100 MG PO DAILY, (Reported) Aspirin (Aspirin) 81 Mg Tab.chew, 81 MG PO DAILY, (Reported) Cholecalciferol (Vitamin D3) (Vitamin D3) 25 Mcg Capsule, 25 MCG PO DAILY, (Reported) Docusate Sodium (Dok) 100 Mg Capsule, 100 MG PO BID Escitalopram Oxalate (Escitalopram Oxalate) 20 Mg Tablet, 20 MG PO DAILY, (Reported) Ferrous Sulfate (Ferrous Sulfate) 325 Mg Tablet, 325 MG PO DAILY, (Reported) Insulin Human Lispro (Humalog) 100 Unit/1 Ml Vial, 0 UNITS SC AC Insulin Human Lispro (Humalog) 100 Unit/1 Ml Vial, 0 UNITS SC QHS L.acidoph/L.bulg/B.bif/S.therm (Bacid Caplet) 1 Each Tablet, 1 TAB PO TID, (Reported) Lansoprazole (Lansoprazole) 30 Mg Capsule.dr, 30 MG PO DAILY, (Reported) Lidocaine (Lidocaine) 5% Adh..patch, 1 PATCH TD DAILY Metoprolol Succinate (Metoprolol Succinate) 25 Mg Tab.er.24h, 25 MG PO DAILY, (Reported) Senna (Senna Lax) 8.6 Mg Tablet, 2 TAB PO DAILY Sodium Chloride (Sodium Chloride) 1,000 Ml Iv.soln, 1,000 ML IV 100mL/hr Tamsulosin HCl (Flomax) 0.4 Mg Capsule, 1 CAP PO QHS, (Reported) once daily 1/2 hour following the same meal each day Trazodone HCl (Trazodone HCl) 50 Mg Tablet, 50 MG PO QHS, (Reported) Scheduled PRN Acetaminophen (Acetaminophen) 500 Mg Tablet, 1,000 MG PO TID PRN for PAIN, (Reported) Bisacodyl (Bisacodyl) 10 Mg Supp.rect, 10 MG [place] DAILY PRN for CONSTIPATION, (Reported) GIVE ON DAY 3 OF NO BM IF NO RELIEF FROM MOM Calcium Carbonate (Tums) 200 Mg Tab.chew, 500 MG PO TID PRN for HEART BURN, (Reported) Magnesium Hydroxide (Milk of Magnesia) 400 Mg/5 Ml Oral.susp, 30 ML PO ONCE PRN for CONSTIPATION, (Reported) GIVE ON DAY 3 IN AM IF NO BM Ondansetron HCl/Pf (Ondansetron HCl 4 mg/2 ml Vial) 4 Mg/2 Ml Vial, 4 MG IV Q6HP PRN for NAUSEA OR VOMITING Sodium Phosphate,Custer-Dibasic (Fleet Enema) 133 Ml Enema, 1 LEONIE [place] ONCE PRN for CONSTIPATION, (Reported) GIVE ON DAY 4 OF NO BM IF NO RELIEF FROM SUPPOSITORY Tramadol HCl (Tramadol HCl) 50 Mg Tablet, 50 MG NG Q8HP PRN for MODERATE PAIN (PS 5-7) Allergies Coded Allergies: No Known Allergies (Unverified , 08/12/20) BRANDIE LINTON DO Aug 17, 2020 21:56
[2020-08-17 22:45] VITALS: BP 126/65
--- NOTE | 2020-08-18 12:22 | ECGEPIP ---
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 Electronically Signed on 08-18-2020 12:22:00 EST by Colten Ramirez
--- NOTE | 2020-08-19 11:14 | CR ---
OR CONSULTATION DATE: 08/17/2020 TIME: 11:30 a.m. CONSULTING PHYSICIAN: Lucas Soto M.D. HISTORY OF PRESENT ILLNESS: This is an 85-year-old male who is transferred from [facility] for orthopedic evaluation. The patient initially had a backwards fall when got up to use the bathroom on the July where he thereafter felt right hip pain and inability to ambulate. The patient denies feeling dizzy, feeling short of breath or having chest pain. The patient reported having palpitations prior to his ground-level fall. The patient endorses that his legs gave out on him and he is not sure if he lost his balance or lost consciousness. The patient now has a right intertrochanteric fracture. Recently, the patient has developed concerns from Cardiology including aortic stenosis which they feel is urgent enough to require a possible transfer to [facility]. As an orthopedic surgeon, I feel if anesthesia is able to provide epidural for any surgery that he would have decreased risk of anesthesia for his right hip cephalomedullary nail. PAST MEDICAL HISTORY: 1. Chronic O2 dependent respiratory failure. 2. Coronary artery disease, history of [place]. 3. NIDDM. 4. GUZMAN. 5. IRENE. 6. Chronic kidney disease Stage IV. 7. Hypertension/HFPEF. 8. Longstanding persistent atrial fibrillation. 9. DLP. 10.Anxiety. 11.Gout. 12.ED. 13.GERD. 14.Obesity. 15.History of pleural effusion. 16.Hearing loss. 17.AAA. 18.BPH. 19.Imbalance. 20.Bilateral knee replacements. SOCIAL HISTORY: The patient lives in [place], [place]. FAMILY HISTORY: Unknown. ALLERGIES: Unknown. CURRENT MEDICATIONS: Please see Internal Medicine note. REVIEW OF SYSTEMS: A 14 point review of systems is negative unless otherwise described in the HPI above. PHYSICAL EXAMINATION: The patient had a right hip that was flexed, abducted and externally rotated which is indicative of right hip pain. Patient had a positive log roll sign with pain with log roll test. Patient is otherwise neurovascularly intact to the right lower extremity. He did have significant erythema about the right knee likely secondary to his blood thinners and his previous right knee contusion. Patient's right lower extremity was otherwise neurovascularly intact with 2+ dorsalis pedis and posterior tibial arterial pulse. Patient had brisk capillary refill of the digits of his right foot. He had 5/5 motor strength of the EHL, FHL, tibialis anterior, peroneal musculature and gastroc-soleus musculature. He has sensation intact to light touch to the deep and superficial peroneal, sural, saphenous and tibial nerve distributions. There were no breaks in the skin. Appreciate obvious pain in the right hip with any type of motion. RADIOGRAPHS: Radiographs demonstrate an extracapsular intertrochanteric fracture of the right hip. IMPRESSION: An 85-year-old male with multiple medical comorbidities with a right hip intertrochanteric fracture. PLAN: Given the fact that the patient was a community ambulator with or without assistive devices at home prior to this hip fracture, I feel that performing the right hip cephalomedullary nail in order to treat his right hip fracture is a very reasonable option. Given his multiple comorbidities including his cardiac history and Cardiology recommendations, I do feel that it is difficult to weigh the pros and cons of each procedure given his complicated medical history. However, given the opportunity to perform either a spinal or epidural anesthesia for pain control, I do believe that we have a likely chance of performing the appropriate surgery that will enable him to bear weight to the right lower extremity with reasonable risk. Given the extremely high chance of mortality within one year time frame, if the patient does not undergo the aforementioned procedure, I feel the patient would most likely benefit from an urgent right hip fixation. If the patient is to be optimized this evening and to undergo the aforementioned spinal or epidural anesthesia, of course pending Anesthesia's assessment, I do feel we have a reasonable opportunity to treat this patient's right hip pain, get him mobilizing and temporize his other medical comorbidities at this time. Of course, it is a complicated medical decision which require both the family member with whom I have talked with as well as the Internal Medicine, Cardiology and Anesthesia. I will continue to talk with the aforementioned members of the decision making process and we will come to a conclusion as far as surgery versus transfer to [facility] in the near future.
== END 2020-08-17 23:17 | disposition short-term general hospital (02) | DRG 543 ==
LOC: M ED 00:29 → M ED INP 00:46 → M MS5PR 03:42 → M PCU 12:25
PROVIDERS: ADMIT Internal Medicine; ATTEND Internal Medicine
PROC: 30233N1 Transfusion of Nonautologous Red Blood Cells into Peripheral Vein, Percutaneous Approach (ICD-10-PCS; 2020-08-13)
PROC: 0W9930Z Drainage of Right Pleural Cavity with Drainage Device, Percutaneous Approach (ICD-10-PCS; principal; 2020-08-13 12:02)
DX: M84.451A Pathological fracture, right femur, initial encounter for fracture (principal); N18.4 Chronic kidney disease, stage 4 (severe); I48.11 Longstanding persistent atrial fibrillation; I50.32 Chronic diastolic (congestive) heart failure; J96.10 Chronic respiratory failure, unspecified whether with hypoxia or hypercapnia; J90 Pleural effusion, not elsewhere classified; J94.8 Other specified pleural conditions; K56.7 Ileus, unspecified; N17.9 Acute kidney failure, unspecified; E11.9 Type 2 diabetes mellitus without complications; G47.33 Obstructive sleep apnea (adult) (pediatric); I35.0 Nonrheumatic aortic (valve) stenosis; K21.9 Gastro-esophageal reflux disease without esophagitis; I27.20 Pulmonary hypertension, unspecified; M10.9 Gout, unspecified; I25.10 Atherosclerotic heart disease of native coronary artery without angina pectoris; Z79.899 Other long term (current) drug therapy; Z79.82 Long term (current) use of aspirin; I25.2 Old myocardial infarction; Z99.81 Dependence on supplemental oxygen; E66.9 Obesity, unspecified; F41.9 Anxiety disorder, unspecified; N40.0 Benign prostatic hyperplasia without lower urinary tract symptoms; Z96.653 Presence of artificial knee joint, bilateral; D64.9 Anemia, unspecified; F03.90 Unspecified dementia, unspecified severity, without behavioral disturbance, psychotic disturbance, mood disturbance, and anxiety; E87.5 Hyperkalemia